=== PATIENT | female | born 1990 | race Caucasian/White ===

== ENCOUNTER 2017-07-13 14:32 | Emergency (ER) | payer OTHER, SELFPAY ==
[2017-07-13 14:44] VITALS: BP 123/86; PULSE 78; RESP 20; TEMP 36.5; O2SAT 97; BMI 38.0
--- NOTE | 2017-07-13 14:52 | HMH.EDUTC ---
[facility] [place] Disposition Clinical Impression: URI (upper respiratory infection) Qualifiers: URI type: unspecified URI Qualified Code(s): J06.9 - Acute upper respiratory infection, unspecified Disposition: Home, Self-Care Condition on Discharge: Good Instructions: DI for Cough -- Adult, Sore Throat, DI for Nasal Congestion Additional Instructions: Over the counter Motrin or Tylenol as needed for fever or pain REturn if needed Follow up with family doctor * Monitor Temp. Tylenol and/or Ibuprofen as needed. ER if fever is no less than 101 despite alternating Tylenol and Ibuprofen * Encourage fluids, water, Gatorade, powerade, pedialyte if infant/toddler/or child * Warm salt water gargles for throat irritation *Warm fluids *Sore throat lozenges *Sleep elevated *humidifier or vaporizer Lots of rest Increase fluids, water, Gatorade, powerade Follow up IMMEDIATELY for new or worsening of symptoms OR no noticeable improvement over the next 48-72 hours. 911 immediately for any life threatening symptoms such as chest pain or difficulty breathing Referrals: Rom Mendoza [Primary Care Provider] - Time of Disposition: 15:46 Medical Decision Making - Medical Records Medical records reviewed: Yes: I reviewed the patient's medical records. Vital Signs: 07/13/17 14:44 Temperature 97.7 F Temperature Source Temporal Artery Scan Pulse Rate [Right] 78 Respiratory Rate 20 Blood Pressure [Right Arm] 123/86 Blood Pressure Mean [Right Arm] 98 Blood Pressure Source [Right Arm] Automatic Cuff Blood Pressure Position [Right Arm] Sitting 02 Sat by Pulse Oximetry 97 Oxygen Delivery Method Room Air - Lab Data Lab Results 07/13/17 14:34: Influenza Type A Ag Negative, Influenza Type B Ag Negative, Strep Scn Rapid Clinic Negative Orders (Tests/Meds): ORDERS Category Date Time Status Chest XR 2 view (NOT portable) [XR chest 2V] Stat Exams 07/13/17 15:00 Taken Strep Screen Confirmation Stat Micro 07/13/17 14:34 Received - Radiology Data #1 Image(s): Chest Image Reviewed: Yes I reviewed the patient's radiology image w/the ED provider Preliminary Findings: Normal/NAD - Balbir Inquiry Pt receiving controlled substance: No Balbir was queried for this patient: No [facility] [place] HPI - General Stated complaint: sore throat, rash, chest congestion Mode of Arrival: Ambulatory Source of Information: Patient Limitations: No Limitations Description of Symptoms (Recalled from Triage Doc. by RN): SORE THROAT, RASH, VOMITING HEENT Symptoms (Recalled from RN notes): Yes Resp Symptoms (Recalled from RN notes): No Skin Symptoms (Recalled from RN notes): No MS Symptoms (Recalled from RN notes): No Functional Status (Recalled from RN notes): N - History of Present Illness Provider Complaint: Patient state that she has been having flu like symptoms State that she seen family doctor and was placed on zpack on but not got any better State that she was worried so she came back to get checked again for flu State that she is also having some chest congestion and drainage - Related Data Home Medications Medication Instructions Recorded Confirmed Sertraline HCl [Zoloft 100mg 100 mg PO DAILY 07/13/17 07/13/17 tablet] Allergies Allergy/AdvReac Type Severity Reaction Status Date / Time No Known Allergies Allergy Verified 07/13/17 14:48 - Worker's Comp Is this a Worker's Comp case?: No [facility] History - *Social History Alcohol Intake: never - Psychiatric History Expresses thoughts of harming self/others: None Suicide Plan Description: No Plan ROS Obtained: Yes All systems reviewed & no additional complaints - Constitutional Constitutional: Reports chills, Reports fever(s) - ENT Ears, Nose, Mouth, and Throat: Reports sore throat Physical Exam - General General appearance: alert, in no apparent distress - Expanded ENT Exam Nose exam: Present: sinus tenderness Comment: Throat red,
--- NOTE | 2017-07-13 15:00 | XR_ITS ---
XR chest 2V Ordering Physician: Stephie Sheehan Patient Age: 27 years: Female HISTORY: ITS.REASON: congestioncough along with sinus symptoms TECHNIQUE: PA and lateral chest COMPARISON :None CXR available. Left shoulder study FINDINGS Lungs appear well expanded and clear with no focal pneumonia. Nothing definitely acute. Small calcified granulomas right infrahilar region and scattered throughout central right lung more so than left. Small calcified hilar nodes. These features reflect over elements disease. Less optimal inspiration accentuates markings at bases. As well as accentuates heart size. Heart appears upper normal in size considering such. The january and mediastinal structures satisfactory. Size considering such Chest wall unremarkable. No pleural effusion or pneumothorax. IMPRESSION: Nothing definitely acute
--- NOTE | 2017-07-13 15:00 | ED_ITS ---
[facility] – [place] Disposition Clinical Impression: URI (upper respiratory infection) Qualifiers: URI type: unspecified URI Qualified Code(s): J06.9 - Acute upper respiratory infection, unspecified Disposition: Home, Self-Care Condition on Discharge: Good Instructions: DI for Cough -- Adult, Sore Throat, DI for Nasal Congestion Additional Instructions: Over the counter Motrin or Tylenol as needed for fever or pain REturn if needed Follow up with family doctor * Monitor Temp. Tylenol and/or Ibuprofen as needed. ER if fever is no less than 101 despite alternating Tylenol and Ibuprofen * Encourage fluids, water, Gatorade, powerade, pedialyte if infant/toddler/or child * Warm salt water gargles for throat irritation *Warm fluids *Sore throat lozenges *Sleep elevated *humidifier or vaporizer Lots of rest Increase fluids, water, Gatorade, powerade Follow up IMMEDIATELY for new or worsening of symptoms OR no noticeable improvement over the next 48-72 hours. 911 immediately for any life threatening symptoms such as chest pain or difficulty breathing Referrals: Rom Mendoza [Primary Care Provider] - Time of Disposition: 15:46 Medical Decision Making - Medical Records Medical records reviewed: Yes: I reviewed the patient's medical records. Vital Signs: 07/13/17 14:44 Temperature 97.7 F Temperature Source Temporal Artery Scan Pulse Rate [Right] 78 Respiratory Rate 20 Blood Pressure [Right Arm] 123/86 Blood Pressure Mean [Right Arm] 98 Blood Pressure Source [Right Arm] Automatic Cuff Blood Pressure Position [Right Arm] Sitting 02 Sat by Pulse Oximetry 97 Oxygen Delivery Method Room Air - Lab Data Lab Results 07/13/17 14:34: Influenza Type A Ag Negative, Influenza Type B Ag Negative, Strep Scn Rapid Clinic Negative Orders (Tests/Meds): ORDERS Category Date Time Status Chest XR 2 view (NOT portable) [XR chest 2V] Stat Exams 07/13/17 15:00 Taken Strep Screen Confirmation Stat Micro 07/13/17 14:34 Received - Radiology Data #1 Image(s): Chest Image Reviewed: Yes I reviewed the patient's radiology image w/the ED provider Preliminary Findings: Normal/NAD - Balbir Inquiry Pt receiving controlled substance: No Balbir was queried for this patient: No [facility] [place] HPI - General Stated complaint: sore throat, rash, chest congestion Mode of Arrival: Ambulatory Source of Information: Patient Limitations: No Limitations Description of Symptoms (Recalled from Triage Doc. by RN): SORE THROAT, RASH, VOMITING HEENT Symptoms (Recalled from RN notes): Yes Resp Symptoms (Recalled from RN notes): No Skin Symptoms (Recalled from RN notes): No MS Symptoms (Recalled from RN notes): No Functional Status (Recalled from RN notes): N - History of Present Illness Provider Complaint: Patient state that she has been having flu like symptoms State that she seen family doctor and was placed on zpack on but not got any better State that she was worried so she came back to get checked again for flu State that she is also having some chest congestion and drainage - Related Data Home Medications Medication Instructions Recorded Confirmed Sertraline HCl [Zoloft 100mg 100 mg PO DAILY 07/13/17 07/13/17 tablet] Allergies Allergy/AdvReac Type Severity Reaction Status Date / Time No Known Allerg
[2017-07-13 15:20] LABS: UTC Influenza A Antigen Negative (Negative); UTC Influenza B Antigen Negative (Negative); UTC Strep Screen (Rapid) Negative (Negative)
[2017-07-13 15:52] VITALS: BP 127/77; PULSE 78; RESP 18; TEMP 36.6; O2SAT 100
== END 2017-07-13 16:04 | disposition home or self-care (01) ==
PROVIDERS: Emergency Provider Nurse Practitioner; PCP Internal Medicine
DX: J06.9 Acute upper respiratory infection, unspecified (principal)
CPT/HCPCS: 71046; 87804; 87880; 96372; 99202

== ENCOUNTER 2020-01-31 17:58 | Emergency (ER) | payer OTHER, SELFPAY ==
[2020-01-31 18:11] VITALS: BP 131/90; PULSE 82; RESP 20; TEMP 36.7; O2SAT 98; BMI 34.2
--- NOTE | 2020-01-31 18:21 | HMH.EDUTC ---
[facility] [place] Clinical Impression: Biliary colic Gallstone Qualifiers: Cholecystitis presence: without cholecystitis Biliary obstruction: without biliary obstruction Qualified Code(s): K80.20 - Calculus of gallbladder without cholecystitis without obstruction Disposition: Home, Self-Care Condition on Discharge: Good Instructions: DI for Gallstones Prescriptions: Hydrocodone/Acetaminophen [[place] 5-325 Tablet] 1 each PO Q6 #10 tab Prescription Printed Ondansetron [Zofran 4mg ODT] 4 mg PO TID PRN #10 tab.rapdis PRN Reason: Nausea Prescription Printed Referrals: Rom Mendoza [Primary Care Provider] - Steven Jennings MD [Staff Physician] - Medical Decision Making - Medical Records Medical records reviewed: No: I reviewed the patient's medical records. - Balbir Inquiry Pt receiving controlled substance: No Vital Signs: 01/31/20 18:11 01/31/20 18:35 01/31/20 19:44 Temperature 98.1 F 98.1 F Temperature Source Oral Oral Pulse Rate Pulse Rate [Right Brachial] 82 82 67 Respiratory Rate 20 20 16 Blood Pressure Blood Pressure [Right Arm] 131/90 131/90 161/86 H Blood Pressure Mean [Right Arm] 103 103 111 Blood Pressure Source Blood Pressure Source [Right Arm] Automatic Cuff Automatic Cuff Automatic Cuff Blood Pressure Position Blood Pressure Position [Right Arm] Sitting Sitting Sitting 02 Sat by Pulse Oximetry 98 98 100 Oxygen Delivery Method Room Air Room Air Room Air 01/31/20 20:00 01/31/20 20:08 Temperature 98 F Temperature Source Oral Pulse Rate 66 Pulse Rate [Right Brachial] 68 Respiratory Rate 17 16 Blood Pressure 143/73 H Blood Pressure [Right Arm] 143/76 H Blood Pressure Mean [Right Arm] 98 Blood Pressure Source Automatic Cuff Blood Pressure Source [Right Arm] Automatic Cuff Blood Pressure Position Sitting Blood Pressure Position [Right Arm] Supine 02 Sat by Pulse Oximetry 98 Oxygen Delivery Method Room Air Room Air - Lab Data Lab results reviewed: Yes: I reviewed the patient's lab results. Lab Results 01/31/20 18:30: Urine Color Yellow, Urine Appearance Clear, Urine pH 5.5, Ur Specific Ker[place] >= 1.030, Urine Protein Negative, Urine Glucose (UA) Negative, Urine Ketones Trace, Urine Blood Trace-i, Urine Nitrate Negative, Urine Bilirubin Negative, Urine Urobilinogen 0.2, Ur Leukocyte Esterase Negative, Urine RBC 3-5, Urine WBC 3-5, Ur Squamous Epith Cells 5-10, Urine Bacteria 1+, Urine Mucus 1+ 01/31/20 18:30: Urine HCG, Qual Negative 01/31/20 18:40: WBC 12.9 H, RBC 4.74, Hgb 14.3, Hct 42.0, MCV 88.6, MCH 30.1, MCHC 34.0, RDW 13.4, Plt Count 363, MPV 6.9 L, Neut % (Auto) 70.0, Lymph % (Auto) 21.6, Camp % (Auto) 5.6, Eos % (Auto) 2.3, Baso % (Auto) 0.4, Neut # (Auto) 9.0 H, Lymph # (Auto) 2.8, Camp # (Auto) 0.7, Eos # (Auto) 0.3, Baso # (Auto) 0.1 01/31/20 18:40: Sodium 140, Potassium 4.0, Chloride 104, Carbon Dioxide 28, Anion Gap 12.0, BUN 14, Creatinine 0.80, Estimated Creat Clear 184, Estimated GFR 85, Est GFR ( Amer) 103, Glucose 101 H, Calcium 9.4, Total Bilirubin 0.4, AST 27, ALT 25, Alkaline Phosphatase 104, Total Protein 7.5, Albumin 4.0, Globulin 3.5 H, Albumin/Globulin Ratio 1.1 01/31/20 18:40: Lipase 50 Result diagrams: 01/31/20 18:40 01/31/20 18:40 Orders (Tests/Meds): ED MEDICATIONS Discontinued Medications Generic Name Dose Route Start Last Admin Trade Name Herman PRN Reason Stop Dose Admin Sodium Chloride 1,000 mls @ 999 mls/hr 01/31/20 19:00 01/31/20 18:55 Sod Chlor 0.9% 1000ml Bag IV 01/31/20 20:00 999 mls/hr .Q1H1M ADRIANE Administration Ioversol 75 ml 01/31/20 19:30 01/31/20 19:33 Rad-Optiray 350 100ml Vial IV 01/31/20 19:31 75 ml ONCE ONE Administration Protocol Ketorolac Tromethamine 30 mg 01/31/20 19:47 01/31/20 19:53 Toradol 30mg/Ml Vial IV 01/31/20 19:48 30 mg ONCE ONE Administration Morphine Sulfate 4 mg 01/31/20 18:48 01/31/20 18:55 Morphine 4mg/Ml Syringe IV
[2020-01-31 18:35] VITALS: BP 131/90; PULSE 82; RESP 20; TEMP 36.7; O2SAT 98; BMI 34.2
[2020-01-31 18:42] LABS: Microscopic, Urine URINE MICROSCOPIC (MICROSCOPIC)
[2020-01-31 18:45] LABS: Appearance,Urine CLEAR (Clear); Bilirubin,Urine Negative (Negative); Blood, Urine TRACE-I (Negative); Color,Urine YELLOW (Yellow); Glucose,Urine (UA) Negative (Negative); Ketones,Urine TRACE (Negative); Leukocyte Esterase,Urine Negative (Negative); Nitrate,Urine Negative (Negative); PH,Urine 5.5 (5.0-8.5); Protein,Urine Negative (Negative); Specific Gravity, Urine >= 1.030 (1.005-1.030); Urobilinogen,Urine 0.2 EU/dl (0.2)
[2020-01-31 18:46] LABS: Basophils # 0.1 K/mm3 (0-0.2); Basophils % 0.4 % (0.1-2.0); Eosinophils # 0.3 K/mm3 (0.0-0.4); Eosinophils % 2.3 % (0.1-12.0); Hemoglobin 14.3 g/dL (12.2-16.2); Lymphocytes # 2.8 K/mm3 (0.7-4.5); Lymphocytes % 21.6 % (10-50); Mean Corpuscular Hemoglobin 30.1 pg (27.0-31.2); Mean Corpuscular Volume 88.6 fl (81-99); Mean Platelet Volume 6.9 fl (7.4-10.4); Monocytes # 0.7 K/mm3 (0.1-1.0); Monocytes % 5.6 % (1.7-9.3); Platelet Count 363 K/mm3 (142-424); Red Blood Count 4.74 M/mm3 (4.20-5.40); Red Cell Distribution Width 13.4 % (11.5-17.5); White Blood Count 12.9 K/mm3 (4.8-10.8)
[2020-01-31 18:49] LABS: Urine Pregnancy, HCG Qual. Negative (Negative)
--- NOTE | 2020-01-31 18:49 | US_ITS ---
PROCEDURE: US GALLBLADDER CLINICAL INDICATION: RUQ pain COMPARISON: No exams were available for comparison FINDINGS: Pancreas: Pancreas is not well delineated due to overlying bowel gas. CT or MRI without and with contrast with pancreatic protocol may provide further evaluation if clinically desired. Liver: There is a hyperechoic lesion in the left hepatic lobe corresponding to [address]. This measures 19 mm. There is an additional hyperechoic lesion in the right hepatic lobe measuring 2.2 cm also corresponding to the CT abnormality. These may be due to hemangiomas. There is appropriate direction of blood flow within a non dilated portal vein. Right kidney: Unremarkable appearing. No hydronephrosis. Gallbladder: There are multiple gallstones. No gallbladder wall thickening, pericholecystic fluid, or biliary dilatation is evident. IMPRESSION: 1. Cholelithiasis. 2. There are 2 hyperechoic liver lesions which may represent hemangiomas Dictated by: Dawson Witt MD 02/01/2020 06:07 Dawson Witt MD in [place] 02/01/2020 06:07
--- NOTE | 2020-01-31 18:49 | CT_ITS ---
PROCEDURE: CT ABDOMEN PELVIS W CON CLINICAL INDICATION: pain Epigastric pain COMPARISON: US US GALLBLADDER from 01/31/2020 TECHNIQUE: IV Contrast: 75ML OPTIRAY 350 Oral Contrast None Axial images obtained with sagittal and coronal reformats. All CT scans at the facility use one or more dose reduction, viz: automated exposure control, ma/kV adjustment per patient size (including targeted exams where dose is matched to indication, i.e. head), or iterative reconstruction technique. FINDINGS: LOWER THORAX: No acute finding ABDOMEN & PELVIS: There are multiple gallstones present. There is a 13 mm hypodensity in the left hepatic lobe superiorly and 24 mm hypodensity in the right hepatic lobe posteriorly and medially. These are indeterminate and could represent solid lesion, hemangioma, or complex cyst. There is a 7 mm hypodensity of the spleen with a similar differential diagnosis. The adrenal glands have an unremarkable appearance. Low-density changes are present involving the pancreas with some infiltration of the fat medial to the head of the pancreas and posterior to the superior mesenteric artery. No peripancreatic fluid collection is evident. No evidence of appendicitis. No intestinal obstruction or free air. No evidence of diverticulitis. No acute bony findings. IMPRESSION: 1. Cholelithiasis. 2. Low-density changes of the pancreas consistent with fatty infiltration with some infiltration of the retroperitoneal fat medial to the head of the pancreas raising the question of possible pancreatitis. 3. Multiple hepatic lesions and at least 1 splenic lesion possibly due to hemangiomas. Complex cyst or neoplasm is also consideration. Dictated by: Dawson Witt MD 02/01/2020 05:44 Dawson Witt MD in [facility] 02/01/2020 05:44
--- NOTE | 2020-01-31 18:50 | HMH.EDABDPAI ---
ED Disposition Clinical Impression: Biliary colic Gallstone Qualifiers: Cholecystitis presence: without cholecystitis Biliary obstruction: without biliary obstruction Qualified Code(s): K80.20 - Calculus of gallbladder without cholecystitis without obstruction Disposition: Home, Self-Care Condition on Discharge: Good Instructions: DI for Gallstones Prescriptions: Hydrocodone/Acetaminophen [[place] 5-325 Tablet] 1 each PO Q6 #10 tab Prescription Printed Ondansetron [Zofran 4mg ODT] 4 mg PO TID PRN #10 tab.rapdis PRN Reason: Nausea Prescription Printed Referrals: Rom Mendoza [Primary Care Provider] - Steven Jennings MD [Staff Physician] - - Critical Care Critical Care Time: No Attestation: On 01/31/20, the high probability of a clinically significant, sudden or life threatening deterioration of the following system(s) required my full and direct attention, intervention and personal management. The time I documented below is in addition to time spent performing reported procedures but includes the following listed in this critical care notation. Medical Decision Making - Medical Records Medical records reviewed: Yes: I reviewed the patient's medical records. - Balbir Inquiry Pt receiving controlled substance: Yes Balbir was queried for this patient: No Risks and benefits of using a controlled substance: were discussed with pt by me Vital Signs: 01/31/20 18:11 01/31/20 18:35 01/31/20 19:44 Temperature 98.1 F 98.1 F Temperature Source Oral Oral Pulse Rate [Right Brachial] 82 82 67 Respiratory Rate 20 20 16 Blood Pressure [Right Arm] 131/90 131/90 161/86 H Blood Pressure Mean [Right Arm] 103 103 111 Blood Pressure Source [Right Arm] Automatic Cuff Automatic Cuff Automatic Cuff Blood Pressure Position [Right Arm] Sitting Sitting Sitting 02 Sat by Pulse Oximetry 98 98 100 Oxygen Delivery Method Room Air Room Air Room Air - Lab Data Lab Results 01/31/20 18:30: Urine Color Yellow, Urine Appearance Clear, Urine pH 5.5, Ur Specific Shirley >= 1.030, Urine Protein Negative, Urine Glucose (UA) Negative, Urine Ketones Trace, Urine Blood Trace-i, Urine Nitrate Negative, Urine Bilirubin Negative, Urine Urobilinogen 0.2, Ur Leukocyte Esterase Negative, Urine RBC 3-5, Urine WBC 3-5, Ur Squamous Epith Cells 5-10, Urine Bacteria 1+, Urine Mucus 1+ 01/31/20 18:30: Urine HCG, Qual Negative 01/31/20 18:40: WBC 12.9 H, RBC 4.74, Hgb 14.3, Hct 42.0, MCV 88.6, MCH 30.1, MCHC 34.0, RDW 13.4, Plt Count 363, MPV 6.9 L, Neut % (Auto) 70.0, Lymph % (Auto) 21.6, Davis % (Auto) 5.6, Eos % (Auto) 2.3, Baso % (Auto) 0.4, Neut # (Auto) 9.0 H, Lymph # (Auto) 2.8, Davis # (Auto) 0.7, Eos # (Auto) 0.3, Baso # (Auto) 0.1 01/31/20 18:40: Sodium 140, Potassium 4.0, Chloride 104, Carbon Dioxide 28, Anion Gap 12.0, BUN 14, Creatinine 0.80, Estimated Creat Clear 184, Estimated GFR 85, Est GFR ( Amer) 103, Glucose 101 H, Calcium 9.4, Total Bilirubin 0.4, AST 27, ALT 25, Alkaline Phosphatase 104, Total Protein 7.5, Albumin 4.0, Globulin 3.5 H, Albumin/Globulin Ratio 1.1 01/31/20 18:40: Lipase 50 Result diagrams: 01/31/20 18:40 01/31/20 18:40 Orders (Tests/Meds): ED MEDICATIONS Generic Name Dose Route Start Last Admin Trade Name Freq PRN Reason Stop Dose Admin Sodium Chloride 1,000 mls @ 999 mls/hr 01/31/20 19:00 01/31/20 18:55 Sod Chlor 0.9% 1000ml Bag IV 01/31/20 20:00 999 mls/hr .Q1H1M ADRIANE Administration Discontinued Medications Generic Name Dose Route Start Last Admin Trade Name Freq PRN Reason Stop Dose Admin Ioversol 75 ml 01/31/20 19:30 01/31/20 19:33 Rad-Optiray 350 100ml Vial IV 01/31/20 19:31 75 ml ONCE ONE Administration Protocol Morphine Sulfate 4 mg 01/31/20 18:48 01/31/20 18:55 Morphine 4mg/Ml Syringe IV 01/31/20 18:49 4 mg ONCE ONE Administration Ondansetron HCl 4 mg 01/31/20 18:48 01/31/20 18:55 Zofran 4mg/2ml Vial IV 01/31/20 18:49 4 mg O
[2020-01-31 18:55] LABS: Chloride 104 mmol/L (98-107); Sodium 140 mmol/L (136-145)
[2020-01-31 18:57] LABS: Lipase 50 U/L (23-300)
[2020-01-31 18:58] LABS: Alanine Aminotransferase 25 U/L (12-78); Albumin/Globulin Ratio 1.1 (1.1-1.8); Alkaline Phosphatase 104 U/L (38-126); Aspartate Amino Transferase 27 U/L (14-36); Bilirubin,Total 0.4 mg/dl (0.2-1.3); Blood Urea Nitrogen 14 mg/dl (7-17); Calcium 9.4 mg/dl (8.4-10.2); Carbon Dioxide 28 mmol/L (22.0-30.0); Creatinine Clearance Estimated 184 mL/min (50-200); Estimated Glomerular Filt Rate 85 ml/min (>60); GFR (African American) 103 ML/MIN (>60); Globulin 3.5 g/dL (1.3-3.2); Glucose 101 mg/dl (74-100); Total Protein,Serum 7.5 g/dl (6.3-8.2)
[2020-01-31 19:05] LABS: Bacteria,Urine 1+ /lpf; Mucus,Urine 1+ /lpf
--- NOTE | 2020-01-31 19:20 | PC.NURSE ---
Took report from Cadence, she just finished US and pt is full of gallstones, pt going to CT now
--- NOTE | 2020-01-31 19:40 | PC.NURSE ---
Pt returned from CT
[2020-01-31 19:44] VITALS: BP 161/86; PULSE 67; RESP 16; O2SAT 100
[2020-01-31 20:00] VITALS: BP 143/76; PULSE 68; RESP 17; O2SAT 98
[2020-01-31 20:08] VITALS: BP 143/73; PULSE 66; RESP 16; TEMP 36.6; O2SAT 97
--- NOTE | 2020-01-31 20:08 | PC.NURSE ---
pt was discharged at this time via [facility] and left ER
== END 2020-01-31 20:09 | disposition home or self-care (01) ==
LOC: UTC 18:04 → ER 18:34
PROVIDERS: Emergency Provider Emergency Medicine; PCP Internal Medicine
DX: K80.20 Calculus of gallbladder without cholecystitis without obstruction (principal); K80.50 Calculus of bile duct without cholangitis or cholecystitis without obstruction
CPT/HCPCS: 74177; 76705; 80053; 81001; 81025; 83690; 85025; 96365; 96375; 96376; 99284; J2405; Q9967

== ENCOUNTER → 2020-04-11 08:50 | Outpatient (CLI) | payer OTHER, SELFPAY ==
--- NOTE | 2020-04-11 08:54 | XR_ITS ---
PROCEDURE: XR KNEE RT 4V CLINICAL INDICATION: right knee pain; weightbearing Knee pain, recent dislocation COMPARISON: CR [id number] [id number] from 11/02/2016 FINDINGS: Subchondral lucency is present involving the lateral femoral condyle in the subcortical region. This has developed since the previous exam. There are mild osteoarthritic changes of the patellofemoral joint laterally. There is a small knee joint effusion. No fracture or dislocation. Other findings:None. IMPRESSION: Subchondral lucency in the lateral femoral condyle. This area measures approximately 15 mm. Has the patient had interval surgery to this region. Sub chondral cyst is a consideration. Osteochondral defect is considered. Other cystic lesions of the epiphysis is a consideration such as a Jules's abscess or an enchondroma. Consider MRI for further evaluation. Dictated by: Dawson Witt MD 04/11/2020 16:54 Dawson Witt MD in [place] 04/11/2020 16:54
== END ==
PROVIDERS: PCP Internal Medicine; Visit Provider Orthopaedic Surgery
DX: M25.561 Pain in right knee (principal)
CPT/HCPCS: 73564

== ENCOUNTER → 2020-04-19 10:11 | Outpatient (CLI) | payer OTHER, SELFPAY ==
--- NOTE | 2020-04-19 10:16 | MR_ITS ---
PROCEDURE: MR KNEE RT WO CON CLINICAL INDICATION: right knee pain; evaluate for meniscal tear Right lateral knee pain COMPARISON: CR XR KNEE RT 4V from 04/11/2020 TECHNIQUE: Routine multiplanar multi echo sequences are performed without gadolinium enhancement. FINDINGS: The cruciate ligaments appear intact. Collateral ligaments also appear intact. Patella tendon and quadriceps tendon have an unremarkable appearance. There are postsurgical changes at the medial aspect of the patella at the patellofemoral ligament region with artifact at this area. There is mild lateral subluxation of the patella and mild osteoarthritic changes of the patellofemoral joint. On the sagittal images there are 2 areas of decreased signal the within the patella consistent with postsurgical changes. There is mild thinning of the patellar cartilage with some increased T2 signal along the medial aspect of the patella. There is also postsurgical change the within the distal femur with a linear area of increased T2 signal along the intercondylar region. No definite meniscal tear apparent. Subchondral cystic changes are present along the distal aspect of the lateral femoral condyle measuring 1.6 cm in width and 1.3 cm AP with some surrounding bone marrow edema. There does appear to be some minimal fragmentation of the articular surface of the femur at this region the suggestion of some minimal collapse of the cortical surface. There are mild osteoarthritic changes. IMPRESSION: 1. Postsurgical changes of the patella and intercondylar region of the distal femur. There appears to been prior repair of the medial patellofemoral ligament. There is mild lateral patellar subluxation and osteoarthritic changes of the patellofemoral joint. 2. No evidence of meniscal tear or cruciate ligament tear. 3. 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 There is some minimal fragmentation of the articular surface of the femur at this region. Dictated by: Dawson Witt MD 04/21/2020 09:22 Dawson Witt MD in [facility] 04/21/2020 09:22
== END ==
PROVIDERS: PCP Internal Medicine; Visit Provider Orthopaedic Surgery
DX: M25.561 Pain in right knee (principal); G89.29 Other chronic pain
CPT/HCPCS: 73721

== ENCOUNTER → 2021-04-01 18:04 | Outpatient (CLI) | payer OTHER, SELFPAY | PROVIDERS: Visit Provider Nurse Practitioner Family | DX: U07.1 COVID-19 (principal) | CPT/HCPCS: C9803; U0003; U0005 ==

== ENCOUNTER 2022-09-21 10:15 | Observation (INO) | payer BC, SELFPAY ==
[2022-09-21] VITALS (7 sets, daily range): BP systolic 122–153; BP diastolic 62–95; PULSE 50–112; RESP 16–20; TEMP 36.8–36.9; O2SAT 95–100; BMI 38.3; BMI 38.8
--- NOTE | 2022-09-21 10:42 | CT_ITS ---
PROCEDURE INFORMATION: Exam: CT Abdomen And Pelvis With Contrast Exam date and time: 09/21/2022 11:23 AM Age: 32 years old Clinical indication: Abdominal pain; Prior surgery; Surgery date: 6+ months; Surgery type: Gb; Additional info: Diffuse pain, diarrhea, fever TECHNIQUE: Imaging protocol: Computed tomography of the abdomen and pelvis with contrast. Radiation optimization: All CT scans at this facility use at least one of these dose optimization techniques: automated exposure control; mA and/or kV adjustment per patient size (includes targeted exams where dose is matched to clinical indication); or iterative reconstruction. Contrast material: ISOVUE; Contrast volume: 75 ml; Contrast route: IV; REPORTING DATA: Count of CT and Cardiac NM exams in prior 12 months: This patient has received 0 known CTs and 0 known cardiac nuclear medicine studies in the 12 months prior to the current study. COMPARISON: CT ABDOMEN PELVIS W CON 01/31/2020 7:21 PM FINDINGS: Lungs: Right pulmonary granuloma. Liver: Scattered hepatic cysts noted. A industrial relations representative lesion measures 2 cm in the right lobe. Gallbladder and bile ducts: There has been a cholecystectomy. No biliary ductal dilation. Pancreas: No peripancreatic fluid stranding. No main pancreatic ductal dilation. Fatty infiltration of the pancreatic parenchyma noted, unchanged. Spleen: No splenomegaly. Subcentimeter splenic cyst noted. Adrenal glands: The adrenal glands are normal. Kidneys and ureters: Nephrograms are symmetric. No nephrolithiasis or hydroureteronephrosis on either side. No solid lesions Stomach and bowel: No bowel wall thickening or distention. Scattered colonic diverticula without acute inflammatory change. Appendix: A normal appendix is identified. Intraperitoneal space: There is no evidence of free intraperitoneal or pelvic fluid. Vasculature: Aorta is nonaneurysmal. Aorta is nonaneurysmal. Lymph nodes: No evidence of retroperitoneal or mesenteric lymphadenopathy. Urinary bladder: Unremarkable as visualized. Reproductive: Dominant follicles noted in the right adnexa. Bones/joints: Unremarkable. No acute fracture. Soft tissues: Unremarkable. IMPRESSION: No evidence of infectious source or acute abnormality in the abdomen or pelvis.
[2022-09-21 10:44] LABS: Chloride 102 mmol/L (98-107); Potassium 3.9 mmoL/L (3.5-5.1); Sodium 140 mmol/L (136-145)
[2022-09-21 10:46] LABS: Amylase 69 U/L (30-110)
[2022-09-21 10:47] LABS: Alanine Aminotransferase 33 U/L (12-78); Albumin Level 4.1 g/dl (3.5-5.0); Albumin/Globulin Ratio 1.3 (1.1-1.8); Alkaline Phosphatase 103 U/L (38-126); Anion Gap 17.9 mEq/L (5-15); Aspartate Amino Transferase 34 U/L (14-36); Basophils % 0.4 % (0.1-2.0); Bilirubin,Total 0.6 mg/dl (0.2-1.3); Blood Urea Nitrogen 12 mg/dl (7-17); Calcium 9.3 mg/dl (8.4-10.2); Carbon Dioxide 24 mmol/L (22.0-30.0); Creatinine Clearance Estimated 201 mL/min (50-200); Eosinophils # 0.1 K/mm3 (0.0-0.4); Eosinophils % 0.7 % (0.1-12.0); Estimated Glomerular Filt Rate 84 ml/min (>60); GFR (African American) 101 ML/MIN (>60); Globulin 3.2 g/dL (1.3-3.2); Glucose 113 mg/dl (74-100); Hematocrit 42.7 % (37.0-47.0); Hemoglobin 14.2 g/dL (12.2-16.2); Lipase 43 U/L (23-300); Lymphocytes # 2.5 K/mm3 (0.7-4.5); Lymphocytes % 32.7 % (10-50); Mean Corpuscular HGB Conc 33.2 g/dL (31.8-35.4); Mean Corpuscular Hemoglobin 29.6 pg (27.0-31.2); Mean Corpuscular Volume 89.2 fl (81-99); Mean Platelet Volume 7.1 fl (7.4-10.4); Monocytes # 0.5 K/mm3 (0.1-1.0); Monocytes % 6.3 % (1.7-9.3); Neutrophils # 4.5 K/mm3 (1.8-7.8); Platelet Count 383 K/mm3 (142-424); Red Blood Count 4.79 M/mm3 (4.20-5.40); Red Cell Distribution Width 13.9 % (11.5-17.5); Total Protein,Serum 7.3 g/dl (6.3-8.2); White Blood Count 7.5 K/mm3 (4.8-10.8)
--- NOTE | 2022-09-21 10:53 | HMH.EDGENADL ---
Discharge Plan Disposition Patient Disposition: Admitted As Inpatient Chief Complaint: Nausea/Vomiting/Diarrhea Prescriptions Prescriptions: No Action No Known Home Medications Referrals Follow up/Referrals: Rom Mendoza [Primary Care Provider] - See instructions Clinical Impressions Clinical Impression: Intractable vomiting, Diarrhea Discharge ED Provider: [facility] General Adult HPI General Chief complaint: Nausea/Vomiting/Diarrhea Stated complaint: vomiting, diarrhea, abd pain Time Seen by Provider: 09/21/22 10:45 Mode of Arrival: Ambulatory Source of Information: Patient Limitations: No Limitations Description of Symptoms (Recalled from ER Triage Doc. by RN): pt to ed c/o lower abd pain and v/d. pt states she seen her pcp x1 week ago and had blood wook and a stool culture obtained. pt reports she has not gotten those resuts back yet. pt reports increased pain. pt denies urinary symptoms. History of Present Illness HPI narrative: Patient is a 32-year-old female with no significant past medical history, previous cholecystectomy who presents emergency department for evaluation of vomiting and diarrhea. Patient went to [facility] approximately 6 weeks ago, has had persistent nonbloody diarrhea since 3-4 episodes per day, over the last 4 days patient has had inability to tolerate p.o. with intractable vomiting. Patient denies dysuria. She has diffuse abdominal pain that is poorly localized. No other acute complaints at this time. Related Data Home Medications Medication Instructions Recorded Confirmed No Known Home Medications 04/25/20 04/25/20 Allergies Allergy/AdvReac Type Severity Reaction Status Date / Time No Known Allergies Allergy Verified 04/25/20 15:26 [facility] Disclaimer: The information contained in this section may have been updated after the patient was seen, as this information can be updated by other users. Social History Smoking Status: Never smoker alcohol intake: never current occupational status: other Travel in the last 8 weeks: None ROS Obtained: Yes Systems reviewed as appropriate & no additional complaints except as documented Physical Exam General General appearance: alert and in no apparent distress Head Head exam: atraumatic and normocephalic Eye Eye exam: Present PERRL and EOMI ENT ENT exam: Present mucous membranes moist Neck Neck exam: Present normal inspection Chest Chest inspection: Present normal inspection and symmetric chest wall rise Respiratory Respiratory exam: Present normal lung sounds bilaterally; Absent respiratory distress Cardiovascular Cardiovascular exam: Present normal rhythm, tachycardia and other (Capillary refill 2 to 3 seconds) Abdominal Exam Abdominal exam: Present soft; Absent tenderness Extremities Exam Extremities exam: Present normal inspection Neurological Exam Neurological exam: Present alert and oriented X3 Psychiatric Psychiatric exam: Present normal affect Skin Skin exam: Present warm and dry Medical Decision Making Balbir Inquiry Pt receiving controlled substance: No Vital Signs: 09/21/22 10:33 09/21/22 10:27 09/21/22 10:31 Temperature 98.4 F Temperature Source Oral Pulse Rate 86 61 Pulse Rate [Left Radial] 112 H Respiratory Rate 20 Blood Pressure 153/95 H 152/92 H Blood Pressure [Right Arm] 152/92 H Blood Pressure Mean 110 112 Blood Pressure Mean [Right Arm] 112 02 Sat by Pulse Oximetry 97 96 97 Oxygen Delivery Method 09/21/22 11:01 Temperature Temperature Source Pulse Rate 73 Pulse Rate [Left Radial] Respiratory Rate Blood Pressure 122/75 Blood Pressure [Right Arm] Blood Pressure Mean 90 Blood Pressure Mean [Right Arm] 02 Sat by Pulse Oximetry 95 Oxygen Delivery Method Room Air Lab Data Lab Results 09/21/22 10:21: WBC 7.5, RBC 4.79, Hgb 14.2, Hct 42.7, MCV 89.2, MCH 29.6, MCHC 33.2, RDW 13.9, Plt Count 383, MPV 7.1 L,
[2022-09-21 10:54] LABS: VBG Base Excess -3.2 mmol/L (-2.4-2.3); VBG HCO3 20.9 mmol/L (23-30); VBG Oxygen Saturation 98.7 % (50-70); VBG PCO2 31.5 mmol/L (35-51); VBG PH 7.44 mmol/L (7.31-7.41); VBG Total CO2 21.9 mmol/L (23-27)
[2022-09-21 10:57] LABS: Lactic Acid 1.5 mmol/L (0.7-2.1)
[2022-09-21 11:10] LABS: HCG Qualitative, Serum Negative (Negative)
--- NOTE | 2022-09-21 12:03 | PC.NURSE ---
rounded on pt, family at bs, pt sleeping
[2022-09-21 12:51] LABS: Microscopic, Urine URINE MICROSCOPIC (MICROSCOPIC)
[2022-09-21 12:54] LABS: Appearance,Urine CLEAR (Clear); Bilirubin,Urine Negative (Negative); Blood, Urine Negative (Negative); Color,Urine YELLOW (Yellow); Glucose,Urine (UA) Negative (Negative); Ketones,Urine TRACE (Negative); Leukocyte Esterase,Urine TRACE (Negative); Nitrate,Urine Negative (Negative); PH,Urine 6.5 (5.0-8.5); Protein,Urine Negative (Negative); Specific Gravity, Urine <= 1.005 (1.005-1.030); Urobilinogen,Urine 0.2 EU/dl (0.2)
[2022-09-21 13:04] LABS: RBC,Urine Occasional #/hpf (0-3); Squamous Epithelial Cell,Urine Occasional #/hpf (0-5)
--- NOTE | 2022-09-21 13:08 | EXP.HP ---
History of Present Illness *Admission Date: 09/21/22 *Reason for visit:: intractable nausea and vomiting *History of present illness: Ms. England is a pleasant 32-year-old female who reports to the ER today due to worsening nausea and vomiting for the past 2 to 3 days. States she recently traveled to the [place] last month and developed gastroenteritis symptoms including nausea vomiting and diarrhea the day she was coming home. Other members of her democrat had similar symptoms however there is have resolved and she has had persistent diarrhea since her trip for the past approximately 6 weeks. She has had some nausea in the mornings with occasional vomiting. Vomit and stool both are reported to be yellow/bilious. Of note she had her gallbladder removed previously. Elevated temperature earlier this week but no corazon fever. No blood in vomit or stool. Attempts to perform oral challenge in the ER were unsuccessful. Responding intermittently to Zofran. Labs obtained showing normal kidney function, no significant electrolyte disturbances, no elevated white count. Given failure to tolerate oral intake, ER consulted medicine for admission. On arrival to the floor she looks ill but not toxic. Is asking for broth. Hemodynamically stable. Denies any chest pain or shortness of breath. States that most of her pain is epigastric. Was started on Xifaxan by her PCP 48 hours ago. Stool sample obtained at her PCPs office on but still not back. Has continued to take her metformin for PCOS. No previous digestive problems, ulcerative colitis, celiac, lactose intolerance per report. [facility] Disclaimer: The information contained in this section may have been updated after the patient was seen, as this information can be updated by other users. Medical History Gall bladder disease PCOS (polycystic ovarian syndrome) Surgical History H/O knee surgery Family History Family history of diabetes mellitus type II Social History Smoking Status: Never smoker alcohol intake: never current occupational status: employed and other Travel in the last 8 weeks: None Review of Systems Review of Systems Review of systems (narrative): 14 point review of systems performed, pertinent positives and negatives as per HPI Meds Home Medications and Allergies Home Medications Medication Instructions Recorded Confirmed Type choriogonadotropin babak,humrec 250 250 mcg SQ ONCE FERTILITY TREATMENT 09/21/22 09/21/22 History mcg/0.5 mL subcutaneous syringe (Ovidrel) letrozole 2.5 mg tablet 7.5 mg PO DAILY FERTILITY TREATMENT 09/21/22 09/21/22 History metformin 500 mg tablet,extended 1,500 mg PO QPMWITHMEAL FERTILITY 09/21/22 09/21/22 History release 24 hr TREATMENT ondansetron HCl 4 mg tablet 4 mg PO Q8HP PRN Nausea 09/21/22 09/21/22 History New Prescriptions to Start Prescriptions: Allergies Allergy/AdvReac Type Severity Reaction Status Date / Time No Known Allergies Allergy Verified 04/25/20 15:26 Exam Data for Last 24 hours Vital signs and Labs for Last 24 Hours: Temp Pulse Resp BP Pulse Ox 98.4 F 73 20 122/75 95 09/21/22 10:33 09/21/22 11:01 09/21/22 10:33 09/21/22 11:01 09/21/22 11:01 Laboratory Results - last 24 hr 09/21/22 10:21: WBC 7.5, RBC 4.79, Hgb 14.2, Hct 42.7, MCV 89.2, MCH 29.6, MCHC 33.2, RDW 13.9, Plt Count 383, MPV 7.1 L, Neut % (Auto) 60.0, Lymph % (Auto) 32.7, [place] % (Auto) 6.3, Eos % (Auto) 0.7, Baso % (Auto) 0.4, Neut # (Auto) 4.5, Lymph # (Auto) 2.5, [place] # (Auto) 0.5, Eos # (Auto) 0.1, Baso # (Auto) 0.0 09/21/22 10:21: Sodium 140, Potassium 3.9, Chloride 102, Carbon Dioxide 24, Anion Gap 17.9 H, BUN 12, Creatinine 0.80, Estimated Creat Clear 201, Estimated GFR 84, Est
--- NOTE | 2022-09-21 13:38 | PC.NURSE ---
covid swab sent to lab
--- NOTE | 2022-09-21 13:46 | PC.NURSE ---
rounded on pt relaxing in bed, @ bs
[2022-09-21 13:51] LABS: Coronavirus 19, PCR Not Detected (NotDetected); Influenza A, PCR Not Detected (NotDetected); Influenza B, PCR Not Detected (NotDetected)
--- NOTE | 2022-09-21 14:35 | PC.NURSE ---
report called to Cary CARROLL
--- NOTE | 2022-09-21 14:45 | PC.NURSE ---
arrived to floor by w/c from ED
--- NOTE | 2022-09-21 15:52 | PC.NURSE ---
pt has drank and tolerated 2 cups of broth without issue. No complaints of nausea or vomiting @ this time. HAt in toilet for stool sample.
--- NOTE | 2022-09-21 17:03 | PC.NURSE ---
courtesy tech round: pt is sitting up in bed and voiced no requests at this time. call martinez is within reach
--- NOTE | 2022-09-21 17:10 | PC.NURSE ---
stool sample sent to lab
[2022-09-21 17:11] LABS: Adenovirus F 40/41, stool Not Detected (NotDetected); Astrovirus Not Detected (NotDetected); Campylobacter Not Detected (NotDetected); Clostridium Difficile A/B, PCR Not Detected (NotDetected); Cryptosporidium Not Detected (NotDetected); Cyclospora Cayetanesis Not Detected (NotDetected); Entamoeba histolytica Not Detected (NotDetected); Enteroaggregative E coli Not Detected (NotDetected); Enteropathogenic E coli Not Detected (NotDetected); Enterotoxigenic E coli Not Detected (NotDetected); Giardia lamblia Not Detected (NotDetected); Norovirus Not Detected (NotDetected); Plesimonas Shigalloides, PCR Not Detected (NotDetected); Rotavirus A Not Detected (NotDetected); Salmonella, PCR Not Detected (NotDetected); Sapovirus Not Detected (NotDetected); Shiga-like toxin E coli Not Detected (NotDetected); Shigella Enterovasive E coli Not Detected (NotDetected); Vibrio Cholerae Not Detected (NotDetected); Vibrio, PCR Not Detected (NotDetected); Yersinia Entercolitica, PCR Not Detected (NotDetected)
[2022-09-22 03:36] VITALS: BP 106/65; PULSE 64; RESP 16; TEMP 36.8; O2SAT 96; BMI 38.9
--- NOTE | 2022-09-22 07:09 | EXP.DC.SUM ---
General Admission date:: 09/21/22 Discharge date: 09/22/22 HPI HPI HPI: Ms. England is a pleasant 32-year-old female who reports to the ER today due to worsening nausea and vomiting for the past 2 to 3 days. States she recently traveled to the [place] last month and developed gastroenteritis symptoms including nausea vomiting and diarrhea the day she was coming home. Other members of her republican had similar symptoms however there is have resolved and she has had persistent diarrhea since her trip for the past approximately 6 weeks. She has had some nausea in the mornings with occasional vomiting. Vomit and stool both are reported to be yellow/bilious. Of note she had her gallbladder removed previously. Elevated temperature earlier this week but no corazon fever. No blood in vomit or stool. Attempts to perform oral challenge in the ER were unsuccessful. Responding intermittently to Zofran. Labs obtained showing normal kidney function, no significant electrolyte disturbances, no elevated white count. Given failure to tolerate oral intake, ER consulted medicine for admission. On arrival to the floor she looks ill but not toxic. Is asking for broth. Hemodynamically stable. Denies any chest pain or shortness of breath. States that most of her pain is epigastric. Was started on Xifaxan by her PCP 48 hours ago. Stool sample obtained at her PCPs office on but still not back. Has continued to take her metformin for PCOS. No previous digestive problems, ulcerative colitis, celiac, lactose intolerance per report. Hospital Course Hospital Course Hospital Course: Ms. England is a 32-year-old female with recent travel to the [place] last month who developed gastroenteritis upon returning home.? Symptoms never fully resolved.? Persistent diarrhea for the past 4 to 6 weeks with worsening nausea and vomiting over the past 2 to 3 days.? Difficulty keeping down nutrition.? Chemistry surprisingly normal on admission. Monitored overnight with improvement in p.o. tolerance. Remained hemodynamically stable during admission. Stable for discharge home. Problems addressed as follows: Intractable nausea and vomiting Diarrhea -Recent travel.? Differential diagnosis includes infectious gastroenteritis, celiac sprue, medication induced diarrhea (continuing to take metformin), or parasitic infection. Diarrhea panel obtained negative for all analytes. Ova and parasite still pending. Started on pantoprazole for possible gastritis component, fiber supplement for bulking of stool, and Zofran for nausea. Tolerating p.o. intake with fluids overnight and breakfast in the morning. Discontinued metformin due to its potential for continuing her loose stools. We will continue symptomatic treatment as above. Recommend stopping Xifaxan. We will continue to follow ova and parasite results. If no improvement next 1 to 2 weeks, would consider referral to GI for further work-up and possible scopes and biopsies. Patient feeling better by morning. Meeting criteria for discharge home. Labs remained essentially normal during admission. Exam Data for Last 24 hours Vital signs and Labs for Last 24 Hours: Temp Pulse Resp BP Pulse Ox 98.3 F 64 16 106/65 L 96 09/22/22 03:36 09/22/22 03:36 09/22/22 03:36 09/22/22 03:36 09/22/22 03:36 Laboratory Results - last 24 hr 09/21/22 10:21: WBC 7.5, RBC 4.79, Hgb 14.2, Hct 42.7, MCV 89.2, MCH 29.6, MCHC 33.2, RDW 13.9, Plt Count 383, MPV 7.1 L, Neut % (Auto) 60.0, Lymph % (Auto) 32.7, [place] % (Auto) 6.3, Eos % (Auto) 0.7, Baso % (Auto) 0.4, Neut # (Auto) 4.5, Lymph # (Auto) 2.5, [place] # (Auto) 0.5, Eos # (Auto) 0.1, Baso # (Auto) 0.0 09/21/22 10:21: Sodium 140, Potassium 3.9, Chloride 102, Carbon Dioxide 24, Anion Gap 17.9 H, BUN 12, Creatinine 0.80, Estimated Creat Clear 201, Estimated GFR 84, Est GFR ( Amer) 101, Glucose 113 H, Calcium 9.3, Total Bilirubin 0.6, AST 34, ALT 33, Alkaline Ph
[2022-09-22 07:37] LABS: Basophils % 0.3 % (0.1-2.0); Eosinophils # 0.1 K/mm3 (0.0-0.4); Eosinophils % 1.4 % (0.1-12.0); Hematocrit 36.5 % (37.0-47.0); Lymphocytes # 2.6 K/mm3 (0.7-4.5); Lymphocytes % 46.3 % (10-50); Mean Corpuscular Hemoglobin 29.2 pg (27.0-31.2); Mean Corpuscular Volume 88.5 fl (81-99); Mean Platelet Volume 8.3 fl (7.4-10.4); Monocytes # 0.5 K/mm3 (0.1-1.0); Monocytes % 8.7 % (1.7-9.3); Neutrophils # 2.4 K/mm3 (1.8-7.8); Neutrophils % 43.4 % (37.0-80.0); Platelet Count 316 K/mm3 (142-424); Red Blood Count 4.13 M/mm3 (4.20-5.40); Red Cell Distribution Width 13.8 % (11.5-17.5); White Blood Count 5.5 K/mm3 (4.8-10.8)
[2022-09-22 07:43] LABS: Chloride 108 mmol/L (98-107); Sodium 138 mmol/L (136-145)
[2022-09-22 07:44] LABS: Potassium 3.7 mmoL/L (3.5-5.1)
[2022-09-22 07:46] LABS: Alanine Aminotransferase 21 U/L (12-78); Albumin Level 3.2 g/dl (3.5-5.0); Albumin/Globulin Ratio 1.3 (1.1-1.8); Alkaline Phosphatase 74 U/L (38-126); Anion Gap 5.7 mEq/L (5-15); Aspartate Amino Transferase 23 U/L (14-36); Bilirubin,Total 0.5 mg/dl (0.2-1.3); Blood Urea Nitrogen 9 mg/dl (7-17); Carbon Dioxide 28 mmol/L (22.0-30.0); Creatinine Clearance Estimated 203 mL/min (50-200); Estimated Glomerular Filt Rate 84 ml/min (>60); GFR (African American) 101 ML/MIN (>60); Globulin 2.5 g/dL (1.3-3.2); Phosphorous 3.3 mg/dl (2.5-4.5); Total Protein,Serum 5.7 g/dl (6.3-8.2)
[2022-09-22 07:47] LABS: Calcium 8.4 mg/dl (8.4-10.2); Glucose 79 mg/dl (74-100)
[2022-09-22 08:00] VITALS: BP 112/56; PULSE 69; RESP 16; TEMP 36.8; O2SAT 96
[2022-09-22 08:15] LABS: Hemoglobin 12.1 g/dL (12.2-16.2)
--- NOTE | 2022-09-23 14:49 | CARE MANAGER ---
Contacted patient related to hospital discharge. She states she feeling better. She picked up her medication and has an appointment with her PCP. Denies questions or concerns at this time.GLEN Serna
== END 2022-09-22 11:11 | disposition home or self-care (01) ==
LOC: ER 13:33 → 2ND 14:16
PROVIDERS: Admitting Provider Internal Medicine Adolescent Medicine; Emergency Provider Emergency Medicine; PCP Internal Medicine; Visit Provider Internal Medicine Adolescent Medicine
DX: R11.2 Nausea with vomiting, unspecified (principal); R19.7 Diarrhea, unspecified; Z79.899 Other long term (current) drug therapy
CPT/HCPCS: 74177; 80053; 81001; 82150; 82803; 83605; 83690; 83735; 84100; 84703; 85025; 87177; 87507; 99285; C9803; G0378; J2405; Q9967; U0003; U0005

== ENCOUNTER 2025-05-06 15:35 | Emergency (ER) | payer BC, SELFPAY ==
[2025-05-06] VITALS (42 sets, daily range): BP systolic 100–154; BP diastolic 57–104; PULSE 58–99; RESP 10–23; TEMP 36.6–36.8; O2SAT 92–100; BMI 40.6
--- NOTE | 2025-05-06 15:41 | XR_ITS ---
FINAL REPORT CLINICAL HISTORY: needle in finger COMPARISON: None FINDINGS: RIGHT HAND Three views demonstrate no acute fracture or dislocation. The visualized joint spaces are normally aligned. There is a linear metallic density measuring 12 mm in the 3rd distal phalanx consistent with known history of needle fragment. IMPRESSION: Needle fragment 3rd distal phalanx. No acute bony abnormality. Reviewed, Interpreted and Dictated by Aníbal Harrell MD Transcribed by Raven Gaston Authenticated and [facility]
--- NOTE | 2025-05-06 15:45 | HMH.EDGENADL ---
Discharge Plan Disposition Patient Disposition: Home, Self-Care Condition: Good Prescriptions Prescriptions: New cephalexin 500 mg capsule 500 mg PO Q6H 7 Days Qty: 40 0RF oxycodone 5 mg tablet 5 mg PO DAILY Qty: 6 0RF No Action letrozole 2.5 mg tablet 7.5 mg PO DAILY Patient Comments: TAKE 3 TABLETS BY MOUTH EVERY DAY FOR 5 DAYS Ovidrel 250 mcg/0.5 mL syringe 250 mcg SQ ONCE Patient Comments: INJECT 1 PREFILLED SYRINGE SUBCUTANEOUSLY (UNDER THE SKIN) DIRECTED BY PHYSICIAN FOR A SINGLE DOSE calcium polycarbophil [FiberCon] 625 mg Tablet 1,250 mg PO BID 30 Days Qty: 120 0RF pantoprazole 40 mg tablet,delayed release (DR/EC) 40 mg PO DAILY 30 Days Qty: 30 0RF ondansetron 8 mg tablet,disintegrating 8 mg PO Q8H PRN (Reason: nausea and vomiting) 5 Days Qty: 15 0RF Referrals Follow up/Referrals: Daniel Mccartney DO [Staff Physician, Orthopedics] - See instructions Rom Mendoza [Primary Care Provider, Medical] - See instructions Activity Restrictions/Add. Instructions Additional Instructions/Restrictions: Take the antibiotics as prescribed. You can remove the dressing and replace it. Place the yellow Xeroform on the fingernail and wrap it. You can clean the fingernail with soap and water. Return for any signs of infection including significant drainage, severe swelling or redness. You can take Tylenol Motrin and oxycodone as needed for severe pain. Please call orthopedics on Friday to schedule an appointment in clinic. Clinical Impressions Clinical Impression: Foreign body of finger of left hand Instructions Patient Instructions: DI for Moderate Sedation, DI for Skin Abscess Print Language Print Language: Micronesian Discharge ED Provider: Esther Palmer General Adult HPI <Esther Palmer DO - Last Filed: 05/08/25 22:23> General Chief complaint: Skin/Abscess/Foreign Body Stated complaint: AO 05/06 1520 needle in middle finger rt hand Time Seen by Provider: 05/06/25 15:37 History of Present Illness HPI narrative: Patient is an otherwise healthy 34-year-old female who presented to the emergency department with an embroidery needle in her finger. 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 Patient states that she was embroidering when she got a needle stuck in her finger. Patient states that the bradycardia machine took off her nail but she has decreased range of motion and can feel the needle in her finger. Patient is unsure when her last tetanus shot was. Patient is not on any blood thinners. Patient denies any other medical problems. Related Data Home Medications ?Medication ?Instructions ?Recorded ?Confirmed choriogonadotropin babak,humrec 250 250 mcg SQ ONCE FERTILITY TREATMENT 09/21/22 09/21/22 mcg/0.5 mL subcutaneous syringe (Ovidrel) letrozole 2.5 mg tablet 7.5 mg PO DAILY FERTILITY TREATMENT 09/21/22 09/21/22 Previous Rx's ?Medication ?Instructions ?Recorded calcium polycarbophil 625 mg 1,250 mg (2 x 625 mg) PO BID 30 09/22/22 tablet (FiberCon) days #120 tabs ondansetron 8 mg disintegrating 8 mg PO Q8H PRN nausea and 09/22/22 tablet vomiting 5 days #15 tabs pantoprazole 40 mg tablet,delayed 40 mg PO DAILY 30 days #30 tabs 09/22/22 release cephalexin 500 mg capsule 500 mg PO Q6H 7 days #40 caps 05/06/25 oxycodone 5 mg tablet 5 mg PO DAILY #6 tabs 05/06/25 Allergies Allergy/AdvReac Type Severity Reaction Status Date / Time No Known Allergies Allergy Verified 04/25/20 15:26 [facility] <Esther Palmer, DO - Last Filed: 05/08/25 22:23> [facility] Disclaimer: The information contained in this section may have been updated after the patient was seen, as this information can be updated by other users. Medical History Gall bladder disease PCOS (polycystic ovarian syndrome) Surgical History H/O knee surgery Family History Family history of diabetes mellitus type II Social History Smoking Status: Never smoker alcohol intake: never current occupational status: employed and other Travel in the last 8 weeks?: None Have you lived/traveled outside [place] in past 30 days?: No Contact w/someone who lives/traveled outside US past 30 days?: No Exposure to someone with infectious disease in past 14 days?: No Do you have a fever (greater than 100.4 F or 38 C)?: No Have you tested positive for COVID-19?: No Exposed to someone with COVID-19 in past 14 days?: No Do you have a sore throat?: No Do you have a cough?: No Do you have any weakness?: No Do you have any diarrhea?: No Are you experiencing any unusual bleeding?: No Do you have any muscle aches/pain?: No Do you have any abdominal pain?: No Are you experiencing loss of taste or smell?: No Other Medical History Have you received the Flu Vaccine for this season: No Have you received the Pneumonia Vaccine: No <Esther Palmer DO - Last Filed: 05/08/25 22:23> ROS Obtained: Yes All systems reviewed & no additional complaints except as documented and Yes Systems reviewed as appropriate & no additional complaints except as documented <Sylvia Hilton (ED), [facility] - Last Filed: 05/06/25 20:21> ROS Obtained: Yes Systems reviewed as appropriate & no additional complaints except as documented Physical Exam <Esther Palmer DO - Last Filed: 05/08/25 22:23> General General appearance: alert and in no apparent distress Head Head exam: atraumatic, normocephalic and normal inspection Eye Eye exam: Present normal appearance, PERRL and EOMI; Absent scleral icterus ENT ENT exam: Present normal exam and normal external ear exam Neck Neck exam: Present normal inspection and full ROM Chest Chest inspection: Present normal inspection and symmetric chest wall rise Respiratory Respiratory exam: Present normal lung sounds bilaterally; Absent respiratory distress or wheezes Cardiovascular Cardiovascular exam: Present regular rate, normal rhythm and normal heart sounds Abdominal Exam Abdominal exam: Present soft and distention; Absent tenderness, guarding or rebound Extremities Exam Extremities exam: Present normal inspection and other (L index finger nail removed, palpable foreign body in finger, decreased ROM) Back Exam Back exam: Present normal inspection and full ROM Neurological Exam Neurological exam: Present alert, oriented X3 and other (NVI in the left index finger) Psychiatric Psychiatric exam: Present normal affect and normal mood Skin Skin exam: Present warm and dry Medical Decision Making <Esther Palmer DO - Last Filed: 05/08/25 22:23> Medical Records Medical records reviewed: Yes I reviewed the patient's medical records. Screening: Per USPSTF and CDC recommendations, given the prevalence of disease in our region, it is our hospital?s policy to screen for HIV and viral Hepatitis for all patients aged 18 and over and those with ongoing risk factors. Balbir Inquiry Pt receiving controlled substance: No Vital Signs: 05/06/25 15:42 05/06/25 16:35 05/06/25 16:47 Temperature 98.2 F Temperature Source Oral Pulse Rate 82 Pulse Rate [Right] 90 Respiratory Rate 18 Blood Pressure 132/101 H Blood Pressure [Right Arm] 143/101 H Blood Pressure Mean Blood Pressure Mean [Right Arm] 115 Blood Pressure Source Blood Pressure Source [Right Arm] Automatic Cuff Blood Pressure Position Blood Pressure Position [Right Arm] Sitting 02 Sat by Pulse Oximetry 99 98 99 Oxygen Delivery Method Room Air Room Air Room Air Oxygen Flow Rate (LPM) 05/06/25 18:31 05/06/25 18:43 05/06/25 18:52 Temperature Temperature Source Pulse Rate 70 Pulse Rate [Right] 63 83 Respiratory Rate 23 21 Blood Pressure 107/65 L Blood Pressure [Right Arm] 124/71 131/97 H Blood Pressure Mean Blood Pressure Mean [Right Arm] 88 108 Blood Pressure Source Blood Pressure Source [Right Arm] Automatic Cuff Automatic Cuff Blood Pressure Position Blood Pressure Position [Right Arm] Supine Supine 02 Sat by Pulse Oximetry 99 100 100 Oxygen Delivery Method Room Air Nasal Cannula Nasal Cannula Oxygen Flow Rate (LPM) 2 2 05/06/25 18:54 05/06/25 18:57 05/06/25 19:00 Temperature Temperature Source Pulse Rate 75 Pulse Rate [Right] 90 84 Respiratory Rate 18 11 L 21 Blood Pressure Blood Pressure [Right Arm] 154/86 H 121/104 H Blood Pressure Mean Blood Pressure Mean [Right Arm] 108 109 Blood Pressure Source Blood Pressure Source [Right Arm] Automatic Cuff Automatic Cuff Blood Pressure Position Blood Pressure Position [Right Arm] Supine Supine 02 Sat by Pulse Oximetry 100 100 100 Oxygen Delivery Method Nasal Cannula Nasal Cannula Nasal Cannula Oxygen Flow Rate (LPM) 2 2 2 05/06/25 19:01 05/06/25 19:01 05/06/25 19:05 Temperature Temperature Source Pulse Rate 83 Pulse Rate [Right] 92 H Respiratory Rate 22 23 Blood Pressure 139/73 Blood Pressure [Right Arm] 140/67 Blood Pressure Mean 112 Blood Pressure Mean [Right Arm] 91 Blood Pressure Source Blood Pressure Source [Right Arm] Automatic Cuff Blood Pressure Position Blood Pressure Position [Right Arm] Supine 02 Sat by Pulse Oximetry 92 L 99 Oxygen Delivery Method Nasal Cannula Nasal Cannula Oxygen Flow Rate (LPM) 2 2 05/06/25 19:05 05/06/25 19:05 05/06/25 19:10 Temperature Temperature Source Pulse Rate 99 H Pulse Rate [Right] Respiratory Rate 23 15 Blood Pressure 140/67 Blood Pressure [Right Arm] Blood Pressure Mean 91 Blood Pressure Mean [Right Arm] Blood Pressure Source Blood Pressure Source [Right Arm] Blood Pressure Position Blood Pressure Position [Right Arm] 02 Sat by Pulse Oximetry 99 Oxygen Delivery Method Nasal Cannula Oxygen Flow Rate (LPM) 2 05/06/25 19:10 05/06/25 19:11 05/06/25 19:15 Temperature Temperature Source Pulse Rate 85 Pulse Rate [Right] 87 Respiratory Rate 16 16 Blood Pressure 133/79 Blood Pressure [Right Arm] 133/79 Blood Pressure Mean 95 Blood Pressure Mean [Right Arm] 97 Blood Pressure Source Blood Pressure Source [Right Arm] Automatic Cuff Blood Pressure Position Blood Pressure Position [Right Arm] Supine 02 Sat by Pulse Oximetry 99 99 Oxygen Delivery Method Nasal Cannula Oxygen Flow Rate (LPM) 2 05/06/25 19:19 05/06/25 19:19 05/06/25 19:20 Temperature Temperature Source Pulse Rate 77 Pulse Rate [Right] 76 Respiratory Rate 17 18 Blood Pressure 114/58 L Blood Pressure [Right Arm] 114/58 L Blood Pressure Mean 78 Blood Pressure Mean [Right Arm] 76 Blood Pressure Source Blood Pressure Source [Right Arm] Automatic Cuff Blood Pressure Position Blood Pressure Position [Right Arm] Supine 02 Sat by Pulse Oximetry 98 98 Oxygen Delivery Method Nasal Cannula Oxygen Flow Rate (LPM) 2 05/06/25 19:20 05/06/25 19:20 05/06/25 19:25 Temperature Temperature Source Pulse Rate 81 80 Pulse Rate [Right] Respiratory Rate 19 19 Blood Pressure 113/67 Blood Pressure [Right Arm] Blood Pressure Mean 79 Blood Pressure Mean [Right Arm] Blood Pressure Source Blood Pressure Source [Right Arm] Blood Pressure Position Blood Pressure Position [Right Arm] 02 Sat by Pulse Oximetry 98 99 Oxygen Delivery Method Nasal Cannula Nasal Cannula Oxygen Flow Rate (LPM) 2 2 05/06/25 19:25 05/06/25 19:26 05/06/25 19:30 Temperature Temperature Source Pulse Rate Pulse Rate [Right] 78 81 Respiratory Rate 19 19 Blood Pressure 120/58 L Blood Pressure [Right Arm] 120/58 L 119/60 Blood Pressure Mean 76 Blood Pressure Mean [Right Arm] 78 79 Blood Pressure Source Blood Pressure Source [Right Arm] Automatic Cuff Automatic Cuff Blood Pressure Position Blood Pressure Position [Right Arm] Supine Supine 02 Sat by Pulse Oximetry 99 100 Oxygen Delivery Method Nasal Cannula Nasal Cannula Oxygen Flow Rate (LPM) 2 2 05/06/25 19:30 05/06/25 19:30 05/06/25 19:31 Temperature Temperature Source Pulse Rate 76 Pulse Rate [Right] 80 Respiratory Rate 19 20 Blood Pressure 119/60 Blood Pressure [Right Arm] 119/60 Blood Pressure Mean 79 Blood Pressure Mean [Right Arm] 79 Blood Pressure Source Blood Pressure Source [Right Arm] Automatic Cuff Blood Pressure Position Blood Pressure Position [Right Arm] Supine 02 Sat by Pulse Oximetry 99 99 Oxygen Delivery Method Nasal Cannula Nasal Cannula Oxygen Flow Rate (LPM) 2 2 05/06/25 19:33 05/06/25 19:34 05/06/25 19:34 Temperature Temperature Source Pulse Rate 76 Pulse Rate [Right] 77 Respiratory Rate 21 19 Blood Pressure 130/66 Blood Pressure [Right Arm] 130/66 Blood Pressure Mean 76 Blood Pressure Mean [Right Arm] 87 Blood Pressure Source Blood Pressure Source [Right Arm] Automatic Cuff Blood Pressure Position Blood Pressure Position [Right Arm] Supine 02 Sat by Pulse Oximetry 99 100 Oxygen Delivery Method Nasal Cannula Nasal Cannula Oxygen Flow Rate (LPM) 2 2 05/06/25 19:36 05/06/25 19:37 05/06/25 19:37 Temperature Temperature Source Pulse Rate 79 Pulse Rate [Right] 75 Respiratory Rate 20 20 Blood Pressure 109/65 L Blood Pressure [Right Arm] 109/65 L Blood Pressure Mean 85 Blood Pressure Mean [Right Arm] 79 Blood Pressure Source Blood Pressure Source [Right Arm] Manual Cuff/ Doppler Blood Pressure Position Blood Pressure Position [Right Arm] Supine 02 Sat by Pulse Oximetry 100 100 Oxygen Delivery Method Nasal Cannula Nasal Cannula Oxygen Flow Rate (LPM) 2 2 05/06/25 19:39 05/06/25 19:40 05/06/25 19:40 Temperature Temperature Source Pulse Rate 73 Pulse Rate [Right] 70 Respiratory Rate 18 19 Blood Pressure 134/70 Blood Pressure [Right Arm] 134/70 Blood Pressure Mean 92 Blood Pressure Mean [Right Arm] 91 Blood Pressure Source Blood Pressure Source [Right Arm] Automatic Cuff Blood Pressure Position Blood Pressure Position [Right Arm] Supine 02 Sat by Pulse Oximetry 100 100 Oxygen Delivery Method Nasal Cannula Nasal Cannula Oxygen Flow Rate (LPM) 2 2 05/06/25 19:42 05/06/25 19:43 05/06/25 19:43 Temperature Temperature Source Pulse Rate 80 Pulse Rate [Right] 66 Respiratory Rate 17 14 Blood Pressure 143/68 H Blood Pressure [Right Arm] 143/68 H Blood Pressure Mean 86 Blood Pressure Mean [Right Arm] 93 Blood Pressure Source Blood Pressure Source [Right Arm] Automatic Cuff Blood Pressure Position Blood Pressure Position [Right Arm] Supine 02 Sat by Pulse Oximetry 100 100 Oxygen Delivery Method Nasal Cannula Nasal Cannula Oxygen Flow Rate (LPM) 2 2 05/06/25 19:45 05/06/25 19:45 05/06/25 19:45 Temperature Temperature Source Pulse Rate 70 Pulse Rate [Right] 69 Respiratory Rate 17 10 L Blood Pressure 128/67 Blood Pressure [Right Arm] 128/67 Blood Pressure Mean 91 Blood Pressure Mean [Right Arm] 87 Blood Pressure Source Blood Pressure Source [Right Arm] Automatic Cuff Blood Pressure Position Blood Pressure Position [Right Arm] Supine 02 Sat by Pulse Oximetry 100 100 Oxygen Delivery Method Nasal Cannula Nasal Cannula Oxygen Flow Rate (LPM) 2 2 05/06/25 19:48 05/06/25 19:48 05/06/25 19:48 Temperature Temperature Source Pulse Rate 66 Pulse Rate [Right] 66 Respiratory Rate 17 16 Blood Pressure 138/72 Blood Pressure [Right Arm] 138/72 Blood Pressure Mean 91 Blood Pressure Mean [Right Arm] 94 Blood Pressure Source Blood Pressure Source [Right Arm] Automatic Cuff Blood Pressure Position Blood Pressure Position [Right Arm] Supine 02 Sat by Pulse Oximetry 100 100 Oxygen Delivery Method Nasal Cannula Nasal Cannula Oxygen Flow Rate (LPM) 2 2 05/06/25 19:49 05/06/25 19:49 05/06/25 19:50 Temperature 97.8 F Temperature Source Oral Pulse Rate Pulse Rate [Right] 94 H 94 H Respiratory Rate 17 17 Blood Pressure 104/87 L Blood Pressure [Right Arm] 104/87 L 104/87 L Blood Pressure Mean 90 Blood Pressure Mean [Right Arm] 92 92 Blood Pressure Source Blood Pressure Source [Right Arm] Automatic Cuff Automatic Cuff Blood Pressure Position Blood Pressure Position [Right Arm] Supine Supine 02 Sat by Pulse Oximetry 100 100 Oxygen Delivery Method Nasal Cannula Nasal Cannula Oxygen Flow Rate (LPM) 2 2 05/06/25 19:50 05/06/25 19:56 05/06/25 20:00 Temperature Temperature Source Pulse Rate 91 H 64 Pulse Rate [Right] Respiratory Rate 16 16 Blood Pressure 115/70 Blood Pressure [Right Arm] Blood Pressure Mean 78 Blood Pressure Mean [Right Arm] Blood Pressure Source Blood Pressure Source [Right Arm] Blood Pressure Position Blood Pressure Position [Right Arm] 02 Sat by Pulse Oximetry 100 100 Oxygen Delivery Method Nasal Cannula Nasal Cannula Oxygen Flow Rate (LPM) 2 2 05/06/25 20:00 05/06/25 20:05 05/06/25 20:05 Temperature Temperature Source Pulse Rate 68 64 Pulse Rate [Right] Respiratory Rate 15 17 Blood Pressure 100/67 L Blood Pressure [Right Arm] Blood Pressure Mean 78 Blood Pressure Mean [Right Arm] Blood Pressure Source Blood Pressure Source [Right Arm] Blood Pressure Position Blood Pressure Position [Right Arm] 02 Sat by Pulse Oximetry 100 100 Oxygen Delivery Method Nasal Cannula Nasal Cannula Oxygen Flow Rate (LPM) 2 2 05/06/25 20:10 05/06/25 20:10 05/06/25 20:15 Temperature Temperature Source Pulse Rate 75 74 Pulse Rate [Right] Respiratory Rate 13 15 Blood Pressure 117/67 Blood Pressure [Right Arm] Blood Pressure Mean 80 Blood Pressure Mean [Right Arm] Blood Pressure Source Blood Pressure Source [Right Arm] Blood Pressure Position Blood Pressure Position [Right Arm] 02 Sat by Pulse Oximetry 100 100 Oxygen Delivery Method Nasal Cannula Nasal Cannula Oxygen Flow Rate (LPM) 2 2 05/06/25 20:15 05/06/25 20:20 05/06/25 20:20 Temperature Temperature Source Pulse Rate 63 Pulse Rate [Right] Respiratory Rate 15 Blood Pressure 112/62 112/66 Blood Pressure [Right Arm] Blood Pressure Mean 82 85 Blood Pressure Mean [Right Arm] Blood Pressure Source Blood Pressure Source [Right Arm] Blood Pressure Position Blood Pressure Position [Right Arm] 02 Sat by Pulse Oximetry 100 Oxygen Delivery Method Nasal Cannula Oxygen Flow Rate (LPM) 2 05/06/25 20:26 05/06/25 20:26 05/06/25 20:30 Temperature Temperature Source Pulse Rate 66 58 L Pulse Rate [Right] Respiratory Rate 14 19 Blood Pressure 113/57 L Blood Pressure [Right Arm] Blood Pressure Mean 88 Blood Pressure Mean [Right Arm] Blood Pressure Source Blood Pressure Source [Right Arm] Blood Pressure Position Blood Pressure Position [Right Arm] 02 Sat by Pulse Oximetry 100 100 Oxygen Delivery Method Nasal Cannula Nasal Cannula Oxygen Flow Rate (LPM) 2 2 05/06/25 20:30 05/06/25 20:36 05/06/25 20:36 Temperature Temperature Source Pulse Rate Pulse Rate [Right] Respiratory Rate 17 Blood Pressure 105/68 L 113/67 Blood Pressure [Right Arm] Blood Pressure Mean 80 74 Blood Pressure Mean [Right Arm] Blood Pressure Source Blood Pressure Source [Right Arm] Blood Pressure Position Blood Pressure Position [Right Arm] 02 Sat by Pulse Oximetry Oxygen Delivery Method Oxygen Flow Rate (LPM) 05/06/25 21:01 Temperature 97.9 F Temperature Source Oral Pulse Rate 78 Pulse Rate [Right] Respiratory Rate 18 Blood Pressure 105/66 L Blood Pressure [Right Arm] Blood Pressure Mean Blood Pressure Mean [Right Arm] Blood Pressure Source Automatic Cuff Blood Pressure Source [Right Arm] Blood Pressure Position Sitting Blood Pressure Position [Right Arm] 02 Sat by Pulse Oximetry Oxygen Delivery Method Room Air Oxygen Flow Rate (LPM) Lab Data Lab results reviewed: Yes I reviewed the patient's lab results. Orders (Tests/Meds): ED MEDICATIONS Discontinued Medications Generic Name Dose Route Start Last Admin Trade Name Freq PRN Reason Stop Dose Admin Cefazolin Sodium 2 gm/ Sodium 100 mls @ 200 mls/hr 05/06/25 16:13 05/06/25 20:24 Chloride IV 05/06/25 16:42 200 mls/hr ONCE ONE Administration Ketamine HCl 40 mg 05/06/25 16:22 05/06/25 18:46 Ketamine 50mg/1ml Syringe 0.3 mg/kg (40 mg) 05/06/25 16:23 40 mg IV Administration ONCE ONE Ketamine HCl 50 mg 05/06/25 19:00 05/06/25 19:03 Ketamine 50mg/1ml Syringe IV 05/06/25 19:01 50 mg ONCE ONE Administration Ketamine HCl 10 mg 05/06/25 19:07 05/06/25 18:56 Ketamine 50mg/1ml Syringe IV 05/06/25 19:08 10 mg ONCE ONE Administration Lidocaine HCl 10 ml 05/06/25 16:19 05/06/25 18:43 Lidocaine 1% 10ml Mdv IJ 05/06/25 16:20 10 ml ONCE ONE Administration Morphine Sulfate 4 mg 05/06/25 15:44 05/06/25 15:54 Morphine 4mg/Ml Syringe IV 05/06/25 15:45 4 mg ONCE ONE Administration Morphine Sulfate 4 mg 05/06/25 17:08 05/06/25 17:41 Morphine 2mg/Ml Syringe IV 05/06/25 17:09 4 mg ONCE ONE Administration Ondansetron HCl 4 mg 05/06/25 15:44 05/06/25 15:54 Ondansetron 4mg/2ml Vial IV 05/06/25 15:45 4 mg ONCE ONE Administration Ondansetron HCl 4 mg 05/06/25 20:50 05/06/25 21:02 Ondansetron 4mg Odt SL 05/06/25 20:51 4 mg ONCE ONE Administration Oxycodone HCl 5 mg 05/06/25 20:23 05/06/25 20:31 Oxycodone 5mg Immediate Release Tablet PO 05/06/25 20:24 5 mg ONCE ONE Administration Tetanus/Reduced Diphtheria/Acell Pertussis 0.5 ml 05/06/25 16:44 05/06/25 20:15 Tet/Diphth/Pert-Adult 0.5ml Syringe IM 05/06/25 16:45 0.5 ml .ONCE ONE Administration ORDERS Category Date Time Status Hand XR right minimum 3 views [XR hand RT min 3V] Stat Exams 05/06/25 15:41 Completed XR hand RT 2V Stat Exams 05/06/25 19:00 Completed Medical Decision Narrative: Patient is a 34-year-old female with no significant past medical history who presented to the emergency department with an embroidery needle in her left index finger. On arrival, patient was hemodynamically stable with unremarkable vital signs. Differential includes but not limited to: Fracture, dislocation, foreign body, open fracture, amongst others. On exam, patient's left index finger had her nail removed. Patient had a palpable needle in the finger. Patient did have some decreased range of motion but patient was other neurovascularly intact with appropriate 2+ pulse. Initial x-ray was obtained that showed a needle in the distal phalynx. An IV was placed, patient was given Ancef with concern for possible open fracture. Patient's tetanus was updated. I did discuss with the orthopedic surgeon given concern for foreign body lodged in the bone and whether to treat this as an open fracture. He stated that the wound and hand did not need a washout but antibiotics was appropriate at discharge. Digital block was performed and initially patient was given paced dose ketamine however patient required additional ketamine for procedural sedation to remove the foreign body. The foreign body was able to be removed and repeat x-ray was obtained. Repeat x-ray showed that the foreign body was fully removed. Patient was sent with outpatient antibiotics. Patient was placed into a splint and a wound dressing. Patient was otherwise discharged home in stable condition, return precautions were discussed. <Sylvia Hilton (ED), [facility] - Last Filed: 05/06/25 20:21> Balbir Inquiry Pt receiving controlled substance: No Vital Signs: 05/06/25 15:42 05/06/25 16:35 05/06/25 16:47 Temperature 98.2 F Temperature Source Oral Pulse Rate 82 Pulse Rate [Right] 90 Respiratory Rate 18 Blood Pressure 132/101 H Blood Pressure [Right Arm] 143/101 H Blood Pressure Mean Blood Pressure Mean [Right Arm] 115 Blood Pressure Source Blood Pressure Source [Right Arm] Automatic Cuff Blood Pressure Position Blood Pressure Position [Right Arm] Sitting 02 Sat by Pulse Oximetry 99 98 99 Oxygen Delivery Method Room Air Room Air Room Air Oxygen Flow Rate (LPM) 05/06/25 18:31 05/06/25 18:43 05/06/25 18:52 Temperature Temperature Source Pulse Rate 70 Pulse Rate [Right] 63 83 Respiratory Rate 23 21 Blood Pressure 107/65 L Blood Pressure [Right Arm] 124/71 131/97 H Blood Pressure Mean Blood Pressure Mean [Right Arm] 88 108 Blood Pressure Source Blood Pressure Source [Right Arm] Automatic Cuff Automatic Cuff Blood Pressure Position Blood Pressure Position [Right Arm] Supine Supine 02 Sat by Pulse Oximetry 99 100 100 Oxygen Delivery Method Room Air Nasal Cannula Nasal Cannula Oxygen Flow Rate (LPM) 2 2 05/06/25 18:54 05/06/25 18:57 05/06/25 19:00 Temperature Temperature Source Pulse Rate 75 Pulse Rate [Right] 90 84 Respiratory Rate 18 11 L 21 Blood Pressure Blood Pressure [Right Arm] 154/86 H 121/104 H Blood Pressure Mean Blood Pressure Mean [Right Arm] 108 109 Blood Pressure Source Blood Pressure Source [Right Arm] Automatic Cuff Automatic Cuff Blood Pressure Position Blood Pressure Position [Right Arm] Supine Supine 02 Sat by Pulse Oximetry 100 100 100 Oxygen Delivery Method Nasal Cannula Nasal Cannula Nasal Cannula Oxygen Flow Rate (LPM) 2 2 2 05/06/25 19:01 05/06/25 19:01 05/06/25 19:05 Temperature Temperature Source Pulse Rate 83 Pulse Rate [Right] 92 H Respiratory Rate 22 23 Blood Pressure 139/73 Blood Pressure [Right Arm] 140/67 Blood Pressure Mean 112 Blood Pressure Mean [Right Arm] 91 Blood Pressure Source Blood Pressure Source [Right Arm] Automatic Cuff Blood Pressure Position Blood Pressure Position [Right Arm] Supine 02 Sat by Pulse Oximetry 92 L 99 Oxygen Delivery Method Nasal Cannula Nasal Cannula Oxygen Flow Rate (LPM) 2 2 05/06/25 19:05 05/06/25 19:05 05/06/25 19:10 Temperature Temperature Source Pulse Rate 99 H Pulse Rate [Right] Respiratory Rate 23 15 Blood Pressure 140/67 Blood Pressure [Right Arm] Blood Pressure Mean 91 Blood Pressure Mean [Right Arm] Blood Pressure Source Blood Pressure Source [Right Arm] Blood Pressure Position Blood Pressure Position [Right Arm] 02 Sat by Pulse Oximetry 99 Oxygen Delivery Method Nasal Cannula Oxygen Flow Rate (LPM) 2 05/06/25 19:10 05/06/25 19:11 05/06/25 19:15 Temperature Temperature Source Pulse Rate 85 Pulse Rate [Right] 87 Respiratory Rate 16 16 Blood Pressure 133/79 Blood Pressure [Right Arm] 133/79 Blood Pressure Mean 95 Blood Pressure Mean [Right Arm] 97 Blood Pressure Source Blood Pressure Source [Right Arm] Automatic Cuff Blood Pressure Position Blood Pressure Position [Right Arm] Supine 02 Sat by Pulse Oximetry 99 99 Oxygen Delivery Method Nasal Cannula Oxygen Flow Rate (LPM) 2 05/06/25 19:19 05/06/25 19:19 05/06/25 19:20 Temperature Temperature Source Pulse Rate 77 Pulse Rate [Right] 76 Respiratory Rate 17 18 Blood Pressure 114/58 L Blood Pressure [Right Arm] 114/58 L Blood Pressure Mean 78 Blood Pressure Mean [Right Arm] 76 Blood Pressure Source Blood Pressure Source [Right Arm] Automatic Cuff Blood Pressure Position Blood Pressure Position [Right Arm] Supine 02 Sat by Pulse Oximetry 98 98 Oxygen Delivery Method Nasal Cannula Oxygen Flow Rate (LPM) 2 05/06/25 19:20 05/06/25 19:20 05/06/25 19:25 Temperature Temperature Source Pulse Rate 81 80 Pulse Rate [Right] Respiratory Rate 19 19 Blood Pressure 113/67 Blood Pressure [Right Arm] Blood Pressure Mean 79 Blood Pressure Mean [Right Arm] Blood Pressure Source Blood Pressure Source [Right Arm] Blood Pressure Position Blood Pressure Position [Right Arm] 02 Sat by Pulse Oximetry 98 99 Oxygen Delivery Method Nasal Cannula Nasal Cannula Oxygen Flow Rate (LPM) 2 2 05/06/25 19:25 05/06/25 19:26 05/06/25 19:30 Temperature Temperature Source Pulse Rate Pulse Rate [Right] 78 81 Respiratory Rate 19 19 Blood Pressure 120/58 L Blood Pressure [Right Arm] 120/58 L 119/60 Blood Pressure Mean 76 Blood Pressure Mean [Right Arm] 78 79 Blood Pressure Source Blood Pressure Source [Right Arm] Automatic Cuff Automatic Cuff Blood Pressure Position Blood Pressure Position [Right Arm] Supine Supine 02 Sat by Pulse Oximetry 99 100 Oxygen Delivery Method Nasal Cannula Nasal Cannula Oxygen Flow Rate (LPM) 2 2 05/06/25 19:30 05/06/25 19:30 05/06/25 19:31 Temperature Temperature Source Pulse Rate 76 Pulse Rate [Right] 80 Respiratory Rate 19 20 Blood Pressure 119/60 Blood Pressure [Right Arm] 119/60 Blood Pressure Mean 79 Blood Pressure Mean [Right Arm] 79 Blood Pressure Source Blood Pressure Source [Right Arm] Automatic Cuff Blood Pressure Position Blood Pressure Position [Right Arm] Supine 02 Sat by Pulse Oximetry 99 99 Oxygen Delivery Method Nasal Cannula Nasal Cannula Oxygen Flow Rate (LPM) 2 2 05/06/25 19:33 05/06/25 19:34 05/06/25 19:34 Temperature Temperature Source Pulse Rate 76 Pulse Rate [Right] 77 Respiratory Rate 21 19 Blood Pressure 130/66 Blood Pressure [Right Arm] 130/66 Blood Pressure Mean 76 Blood Pressure Mean [Right Arm] 87 Blood Pressure Source Blood Pressure Source [Right Arm] Automatic Cuff Blood Pressure Position Blood Pressure Position [Right Arm] Supine 02 Sat by Pulse Oximetry 99 100 Oxygen Delivery Method Nasal Cannula Nasal Cannula Oxygen Flow Rate (LPM) 2 2 05/06/25 19:36 05/06/25 19:37 05/06/25 19:37 Temperature Temperature Source Pulse Rate 79 Pulse Rate [Right] 75 Respiratory Rate 20 20 Blood Pressure 109/65 L Blood Pressure [Right Arm] 109/65 L Blood Pressure Mean 85 Blood Pressure Mean [Right Arm] 79 Blood Pressure Source Blood Pressure Source [Right Arm] Manual Cuff/ Doppler Blood Pressure Position Blood Pressure Position [Right Arm] Supine 02 Sat by Pulse Oximetry 100 100 Oxygen Delivery Method Nasal Cannula Nasal Cannula Oxygen Flow Rate (LPM) 2 2 05/06/25 19:39 05/06/25 19:40 05/06/25 19:40 Temperature Temperature Source Pulse Rate 73 Pulse Rate [Right] 70 Respiratory Rate 18 19 Blood Pressure 134/70 Blood Pressure [Right Arm] 134/70 Blood Pressure Mean 92 Blood Pressure Mean [Right Arm] 91 Blood Pressure Source Blood Pressure Source [Right Arm] Automatic Cuff Blood Pressure Position Blood Pressure Position [Right Arm] Supine 02 Sat by Pulse Oximetry 100 100 Oxygen Delivery Method Nasal Cannula Nasal Cannula Oxygen Flow Rate (LPM) 2 2 05/06/25 19:42 05/06/25 19:43 05/06/25 19:43 Temperature Temperature Source Pulse Rate 80 Pulse Rate [Right] 66 Respiratory Rate 17 14 Blood Pressure 143/68 H Blood Pressure [Right Arm] 143/68 H Blood Pressure Mean 86 Blood Pressure Mean [Right Arm] 93 Blood Pressure Source Blood Pressure Source [Right Arm] Automatic Cuff Blood Pressure Position Blood Pressure Position [Right Arm] Supine 02 Sat by Pulse Oximetry 100 100 Oxygen Delivery Method Nasal Cannula Nasal Cannula Oxygen Flow Rate (LPM) 2 2 05/06/25 19:45 05/06/25 19:45 05/06/25 19:45 Temperature Temperature Source Pulse Rate 70 Pulse Rate [Right] 69 Respiratory Rate 17 10 L Blood Pressure 128/67 Blood Pressure [Right Arm] 128/67 Blood Pressure Mean 91 Blood Pressure Mean [Right Arm] 87 Blood Pressure Source Blood Pressure Source [Right Arm] Automatic Cuff Blood Pressure Position Blood Pressure Position [Right Arm] Supine 02 Sat by Pulse Oximetry 100 100 Oxygen Delivery Method Nasal Cannula Nasal Cannula Oxygen Flow Rate (LPM) 2 2 05/06/25 19:48 05/06/25 19:48 05/06/25 19:48 Temperature Temperature Source Pulse Rate 66 Pulse Rate [Right] 66 Respiratory Rate 17 16 Blood Pressure 138/72 Blood Pressure [Right Arm] 138/72 Blood Pressure Mean 91 Blood Pressure Mean [Right Arm] 94 Blood Pressure Source Blood Pressure Source [Right Arm] Automatic Cuff Blood Pressure Position Blood Pressure Position [Right Arm] Supine 02 Sat by Pulse Oximetry 100 100 Oxygen Delivery Method Nasal Cannula Nasal Cannula Oxygen Flow Rate (LPM) 2 2 05/06/25 19:49 05/06/25 19:49 05/06/25 19:50 Temperature 97.8 F Temperature Source Oral Pulse Rate Pulse Rate [Right] 94 H 94 H Respiratory Rate 17 17 Blood Pressure 104/87 L Blood Pressure [Right Arm] 104/87 L 104/87 L Blood Pressure Mean 90 Blood Pressure Mean [Right Arm] 92 92 Blood Pressure Source Blood Pressure Source [Right Arm] Automatic Cuff Automatic Cuff Blood Pressure Position Blood Pressure Position [Right Arm] Supine Supine 02 Sat by Pulse Oximetry 100 100 Oxygen Delivery Method Nasal Cannula Nasal Cannula Oxygen Flow Rate (LPM) 2 2 05/06/25 19:50 05/06/25 19:56 05/06/25 20:00 Temperature Temperature Source Pulse Rate 91 H 64 Pulse Rate [Right] Respiratory Rate 16 16 Blood Pressure 115/70 Blood Pressure [Right Arm] Blood Pressure Mean 78 Blood Pressure Mean [Right Arm] Blood Pressure Source Blood Pressure Source [Right Arm] Blood Pressure Position Blood Pressure Position [Right Arm] 02 Sat by Pulse Oximetry 100 100 Oxygen Delivery Method Nasal Cannula Nasal Cannula Oxygen Flow Rate (LPM) 2 2 05/06/25 20:00 05/06/25 20:05 05/06/25 20:05 Temperature Temperature Source Pulse Rate 68 64 Pulse Rate [Right] Respiratory Rate 15 17 Blood Pressure 100/67 L Blood Pressure [Right Arm] Blood Pressure Mean 78 Blood Pressure Mean [Right Arm] Blood Pressure Source Blood Pressure Source [Right Arm] Blood Pressure Position Blood Pressure Position [Right Arm] 02 Sat by Pulse Oximetry 100 100 Oxygen Delivery Method Nasal Cannula Nasal Cannula Oxygen Flow Rate (LPM) 2 2 05/06/25 20:10 05/06/25 20:10 05/06/25 20:15 Temperature Temperature Source Pulse Rate 75 74 Pulse Rate [Right] Respiratory Rate 13 15 Blood Pressure 117/67 Blood Pressure [Right Arm] Blood Pressure Mean 80 Blood Pressure Mean [Right Arm] Blood Pressure Source Blood Pressure Source [Right Arm] Blood Pressure Position Blood Pressure Position [Right Arm] 02 Sat by Pulse Oximetry 100 100 Oxygen Delivery Method Nasal Cannula Nasal Cannula Oxygen Flow Rate (LPM) 2 2 05/06/25 20:15 05/06/25 20:20 05/06/25 20:20 Temperature Temperature Source Pulse Rate 63 Pulse Rate [Right] Respiratory Rate 15 Blood Pressure 112/62 112/66 Blood Pressure [Right Arm] Blood Pressure Mean 82 85 Blood Pressure Mean [Right Arm] Blood Pressure Source Blood Pressure Source [Right Arm] Blood Pressure Position Blood Pressure Position [Right Arm] 02 Sat by Pulse Oximetry 100 Oxygen Delivery Method Nasal Cannula Oxygen Flow Rate (LPM) 2 05/06/25 20:26 05/06/25 20:26 05/06/25 20:30 Temperature Temperature Source Pulse Rate 66 58 L Pulse Rate [Right] Respiratory Rate 14 19 Blood Pressure 113/57 L Blood Pressure [Right Arm] Blood Pressure Mean 88 Blood Pressure Mean [Right Arm] Blood Pressure Source Blood Pressure Source [Right Arm] Blood Pressure Position Blood Pressure Position [Right Arm] 02 Sat by Pulse Oximetry 100 100 Oxygen Delivery Method Nasal Cannula Nasal Cannula Oxygen Flow Rate (LPM) 2 2 05/06/25 20:30 05/06/25 20:36 05/06/25 20:36 Temperature Temperature Source Pulse Rate Pulse Rate [Right] Respiratory Rate 17 Blood Pressure 105/68 L 113/67 Blood Pressure [Right Arm] Blood Pressure Mean 80 74 Blood Pressure Mean [Right Arm] Blood Pressure Source Blood Pressure Source [Right Arm] Blood Pressure Position Blood Pressure Position [Right Arm] 02 Sat by Pulse Oximetry Oxygen Delivery Method Oxygen Flow Rate (LPM) 05/06/25 21:01 Temperature 97.9 F Temperature Source Oral Pulse Rate 78 Pulse Rate [Right] Respiratory Rate 18 Blood Pressure 105/66 L Blood Pressure [Right Arm] Blood Pressure Mean Blood Pressure Mean [Right Arm] Blood Pressure Source Automatic Cuff Blood Pressure Source [Right Arm] Blood Pressure Position Sitting Blood Pressure Position [Right Arm] 02 Sat by Pulse Oximetry Oxygen Delivery Method Room Air Oxygen Flow Rate (LPM) Orders (Tests/Meds): ED MEDICATIONS Discontinued Medications Generic Name Dose Route Start Last Admin Trade Name Freq PRN Reason Stop Dose Admin Cefazolin Sodium 2 gm/ Sodium 100 mls @ 200 mls/hr 05/06/25 16:13 05/06/25 20:24 Chloride IV 05/06/25 16:42 200 mls/hr ONCE ONE Administration Ketamine HCl 40 mg 05/06/25 16:22 05/06/25 18:46 Ketamine 50mg/1ml Syringe 0.3 mg/kg (40 mg) 05/06/25 16:23 40 mg IV Administration ONCE ONE Ketamine HCl 50 mg 05/06/25 19:00 05/06/25 19:03 Ketamine 50mg/1ml Syringe IV 05/06/25 19:01 50 mg ONCE ONE Administration Ketamine HCl 10 mg 05/06/25 19:07 05/06/25 18:56 Ketamine 50mg/1ml Syringe IV 05/06/25 19:08 10 mg ONCE ONE Administration Lidocaine HCl 10 ml 05/06/25 16:19 05/06/25 18:43 Lidocaine 1% 10ml Mdv IJ 05/06/25 16:20 10 ml ONCE ONE Administration Morphine Sulfate 4 mg 05/06/25 15:44 05/06/25 15:54 Morphine 4mg/Ml Syringe IV 05/06/25 15:45 4 mg ONCE ONE Administration Morphine Sulfate 4 mg 05/06/25 17:08 05/06/25 17:41 Morphine 2mg/Ml Syringe IV 05/06/25 17:09 4 mg ONCE ONE Administration Ondansetron HCl 4 mg 05/06/25 15:44 05/06/25 15:54 Ondansetron 4mg/2ml Vial IV 05/06/25 15:45 4 mg ONCE ONE Administration Ondansetron HCl 4 mg 05/06/25 20:50 05/06/25 21:02 Ondansetron 4mg Odt SL 05/06/25 20:51 4 mg ONCE ONE Administration Oxycodone HCl 5 mg 05/06/25 20:23 05/06/25 20:31 Oxycodone 5mg Immediate Release Tablet PO 05/06/25 20:24 5 mg ONCE ONE Administration Tetanus/Reduced Diphtheria/Acell Pertussis 0.5 ml 05/06/25 16:44 05/06/25 20:15 Tet/Diphth/Pert-Adult 0.5ml Syringe IM 05/06/25 16:45 0.5 ml .ONCE ONE Administration ORDERS Category Date Time Status Hand XR right minimum 3 views [XR hand RT min 3V] Stat Exams 05/06/25 15:41 Completed XR hand RT 2V Stat Exams 05/06/25 19:00 Completed Procedures <Esther Palmer, DO - Last Filed: 05/08/25 22:23> Foreign Body Removal Time Out Performed: Yes Site: left Description of foreign body: needle Sedation/Analgesia: ketamine Technique: manual removal, removal with forceps and incision made to facilitate removal Confirmed by:: direct visualization and radiograph Complications: none Post-procedure exam: awake, alert Neurovascular: normal distal pulse Procedural Sedation Mallampati Score:: Class I Indication: other (removal of foreign body) ASA Class: I Time of Last PO Intake: 04:00 Preparation: teletypesetter monitor applied, pulse oximeter, capnometry used, supplemental O2 applied, suction/airway equipment at bedside and IV secured Ketamine: IV Patient Tolerated Procedure: well Complications: none Critical Care <Sylvia Hilton (SHARAD), SUMAC TANNER - Last Filed: 05/06/25 20:21> Critical Care Time Critical Care Time: No
[2025-05-06] MEDS: MORPHINE 4MG/ML SYRINGE 4 MG IV (15:54)
[2025-05-06] MEDS: ONDANSETRON 4MG/2ML VIAL 4 MG IV (15:54)
[2025-05-06] MEDS: MORPHINE 2MG/ML SYRINGE 4 MG IV (17:41)
[2025-05-06] MEDS: LIDOCAINE 1% 10ML MDV 10 ML IJ (18:43)
[2025-05-06] MEDS: KETAMINE 50MG/1ML SYRINGE 40 MG IV (18:46)
[2025-05-06] MEDS: KETAMINE 50MG/1ML SYRINGE 10 MG IV (18:56)
--- NOTE | 2025-05-06 18:59 | PC.NURSE ---
This RN pulls 50mg of ketamine. Ayaz BRASHER administers 50mg
--- NOTE | 2025-05-06 19:00 | XR_ITS ---
PROCEDURE INFORMATION: Exam: XR Right Hand Exam date and time: 05/06/2025 7:01 PM Age: 34 years old Clinical indication: Injury or trauma; Other: Foreign body; Puncture; Right; Middle finger; Additional info: Post removal foreign body TECHNIQUE: Imaging protocol: Radiologic exam of the right hand. Views: 1 or 2 views. COMPARISON: CR XR HAND RT MIN 3V 05/06/2025 3:46 PM FINDINGS: Bones/joints: No evidence of acute osseous abnormality. Soft tissues: Interval removal of metallic foreign body from 3rd distal phalanx soft tissues without residual metallic densities. IMPRESSION: 1. Interval removal of metallic foreign body from 3rd distal phalanx soft tissues without residual metallic densities. 2. No evidence of acute osseous abnormality.
[2025-05-06] MEDS: KETAMINE 50MG/1ML SYRINGE 50 MG IV (19:03)
--- NOTE | 2025-05-06 19:29 | PC.NURSE ---
Addendum entered by Marina Apodaca RN 05/06/25 19:37: This RN is assuming care of this pt. During shift change, pt is still recovering from conscious sedation that was performed on . Pt still sleeping at this time. VSS and being recycled q3 min per ER conscious sedation protocol. End tidal monitor on patient. Plan of care ongoing. Original Note: This RN is assuming care of this pt. During shift change, pt is still recovering from conscious sedation that was performed on . Pt still sleeping at this time. VSS and being recycled q3 min per ER conscious sedation protocol. Plan of care ongoing.
--- NOTE | 2025-05-06 19:40 | PC.NURSE ---
Gave report to GLEN Gray at pt's bedside.
[2025-05-06] MEDS: TET/DIPHTH/PERT-ADULT 0.5ML SYRINGE 0.5 ML IM (20:15)
[2025-05-06] MEDS: OXYCODONE 5MG IMMEDIATE RELEASE TABLET 5 MG PO (20:31)
[2025-05-06] MEDS: ONDANSETRON 4MG ODT 4 MG SL (21:02)
--- NOTE | 2025-05-06 21:04 | PC.NURSE ---
IV discontinued. Catheter tip intact. Bleeding controlled.
== END 2025-05-06 21:04 | disposition home or self-care (01) ==
PROVIDERS: Emergency Provider Student in an Organized Health Care Education/Training Program; PCP Internal Medicine
DX: S61.341A Puncture wound with foreign body of left index finger with damage to nail, initial encounter (principal); W27.3XXA Contact with needle (sewing), initial encounter; Z23 Encounter for immunization
CPT/HCPCS: 10120; 73120; 73130; 90471; 90715; 96365; 96375; 96376; 99152; 99153; 99285; J0690; J2270; J2405; Q0162